=== PATIENT | male | born 1950 | race Caucasian/White ===

== ENCOUNTER 2020-06-23 07:52 | Outpatient (REF) | payer MEDICARE, OTHER, SELFPAY ==
[2020-06-23 11:27] LABS: Estimated Average Glucose 137 mg/dL; Hemoglobin A1c % 6.4 %
[2020-06-23 11:40] LABS: Alanine Aminotransferase 7 U/L (0-40); Albumin Level 3.5 g/dL (3.5-5.0); Alkaline Phosphatase 67 U/L (39-117); Anion Gap 9 (12-20); Aspartate Amino Transferase 14 U/L (5-37); Bilirubin Total 0.4 mg/dL (0.0-1.0); Blood Urea Nitrogen 18 mg/dL (9-16); Carbon Dioxide 26 mmol/L (22-29); Chloride 105 mmol/L (96-108); Cholesterol 101 mg/dL; Estimated Glomerular Filt Rate > 60; Glucose Fasting 124 mg/dL (60-99); HDL Cholesterol 26 mg/dL; LDL Cholesterol Calculated 63 mg/dl; Potassium 4.9 mmol/l (3.3-5.1); Sodium 135 mmol/L (135-145); Total Protein 7.8 g/dL (6.5-8.0); Triglycerides 61 mg/dL
[2020-06-23 11:50] LABS: Creatinine Urine 79.58 mg/dL; Microalbum/Creatinine Ratio Ur 327.9 ug/mg cr
== END 2020-06-23 07:53 | disposition home or self-care (01) ==
LOC: HO.MANLR 07:52
PROVIDERS: PCP Internal Medicine; Visit Provider Internal Medicine
DX: E11.65 Type 2 diabetes mellitus with hyperglycemia (principal); I10 Essential (primary) hypertension; E78.00 Pure hypercholesterolemia, unspecified
CPT/HCPCS: 80053; 80061; 82043; 83036

== ENCOUNTER 2020-09-03 07:57 | Outpatient (REF) | payer MEDICARE, OTHER, SELFPAY ==
[2020-09-03 11:45] LABS: Estimated Average Glucose 183 mg/dL
== END 2020-09-03 07:58 | disposition home or self-care (01) ==
LOC: HO.MANLR 07:57
PROVIDERS: PCP Internal Medicine; Visit Provider Internal Medicine
DX: E11.65 Type 2 diabetes mellitus with hyperglycemia (principal)
CPT/HCPCS: 36415; 83036

== ENCOUNTER 2021-01-14 13:37 | Outpatient (REF) | payer MEDICARE, OTHER, SELFPAY ==
[2021-01-14 18:51] LABS: Alanine Aminotransferase 8 U/L (0-40); Albumin Level 3.5 g/dL (3.5-5.0); Alkaline Phosphatase 74 U/L (39-117); Anion Gap 11 (12-20); Aspartate Amino Transferase 13 U/L (5-37); Bilirubin Total 0.6 mg/dL (0.0-1.0); Blood Urea Nitrogen 35 mg/dL (9-16); Calcium 8.8 mg/dL (8.4-10.2); Carbon Dioxide 25 mmol/L (22-29); Chloride 105 mmol/L (96-108); Cholesterol 109 mg/dL; Estimated Glomerular Filt Rate > 60; Glucose Random 145 mg/dL (60-115); HDL Cholesterol 25 mg/dL; LDL Cholesterol Calculated 68 mg/dl; Potassium 4.3 mmol/L (3.3-5.1); Sodium 137 mmol/L (135-145); Total Protein 7.8 g/dL (6.5-8.0); Triglycerides 84 mg/dL
[2021-01-14 18:55] LABS: Creatinine Urine 33.59 mg/dL; Microalbum/Creatinine Ratio Ur 184.5 ug/mg cr
[2021-01-15 06:51] LABS: Estimated Average Glucose 148 mg/dL; Hemoglobin A1c % 6.8 %
== END 2021-01-14 13:38 | disposition home or self-care (01) ==
LOC: HO.MANLDS 13:37
PROVIDERS: PCP Internal Medicine; Visit Provider Internal Medicine
DX: E11.65 Type 2 diabetes mellitus with hyperglycemia (principal); E78.00 Pure hypercholesterolemia, unspecified; I10 Essential (primary) hypertension
CPT/HCPCS: 36415; 80053; 80061; 82043; 83036

== ENCOUNTER 2021-04-29 10:40 | Outpatient (REF) | payer MEDICARE, OTHER, SELFPAY ==
[2021-04-29 14:35] LABS: Estimated Average Glucose 143 mg/dL; Hemoglobin A1c % 6.6 %
== END 2021-04-29 10:41 | disposition home or self-care (01) ==
LOC: HO.MANLDS 10:40
PROVIDERS: PCP Internal Medicine; Visit Provider Internal Medicine
DX: E11.65 Type 2 diabetes mellitus with hyperglycemia (principal); I10 Essential (primary) hypertension; E78.00 Pure hypercholesterolemia, unspecified
CPT/HCPCS: 36415; 83036

== ENCOUNTER 2021-08-05 08:09 | Outpatient (REF) | payer MEDICARE, OTHER, SELFPAY ==
[2021-08-05 11:38] LABS: Alanine Aminotransferase 12 U/L (0-40); Albumin Level 3.7 g/dL (3.5-5.0); Alkaline Phosphatase 54 U/L (39-117); Anion Gap 11 (12-20); Aspartate Amino Transferase 15 U/L (5-37); Bilirubin Total 0.4 mg/dL (0.0-1.0); Blood Urea Nitrogen 29 mg/dL (9-16); Calcium 9.4 mg/dL (8.4-10.2); Carbon Dioxide 28 mmol/L (22-29); Chloride 108 mmol/L (96-108); Cholesterol 152 mg/dL; Estimated Glomerular Filt Rate > 60; Glucose Fasting 115 mg/dL (60-99); HDL Cholesterol 28 mg/dL; LDL Cholesterol Calculated 104 mg/dl; Potassium 4.7 mmol/L (3.3-5.1); Sodium 142 mmol/L (135-145); Total Protein 7.3 g/dL (6.5-8.0); Triglycerides 100 mg/dL
[2021-08-05 11:44] LABS: Creatinine Urine 152.68 mg/dL
[2021-08-05 11:56] LABS: Microalbum/Creatinine Ratio Ur 422.4 ug/mg cr
[2021-08-05 13:58] LABS: Estimated Average Glucose 160 mg/dL; Hemoglobin A1c % 7.2 %
== END 2021-08-05 08:10 | disposition home or self-care (01) ==
LOC: HO.MANLDS 08:09
PROVIDERS: PCP Internal Medicine; Visit Provider Internal Medicine
DX: E11.65 Type 2 diabetes mellitus with hyperglycemia (principal); I10 Essential (primary) hypertension
CPT/HCPCS: 36415; 80053; 80061; 82043; 83036

== ENCOUNTER 2021-10-24 11:53 | Outpatient (REF) | payer MEDICARE, OTHER, SELFPAY ==
[2021-10-24 13:52] LABS: Estimated Average Glucose 143 mg/dL; Hemoglobin A1c % 6.6 %
[2021-10-24 14:29] LABS: Creatinine Urine 91.19 mg/dL
[2021-10-24 14:34] LABS: Alanine Aminotransferase 8 U/L (0-40); Albumin Level 3.8 g/dL (3.5-5.0); Alkaline Phosphatase 54 U/L (39-117); Anion Gap 10 (12-20); Aspartate Amino Transferase 16 U/L (5-37); Bilirubin Total 0.4 mg/dL (0.0-1.0); Blood Urea Nitrogen 24 mg/dL (9-16); Calcium 8.8 mg/dL (8.4-10.2); Carbon Dioxide 26 mmol/L (22-29); Chloride 110 mmol/L (96-108); Cholesterol 110 mg/dL; Estimated Glomerular Filt Rate > 60; Glucose Fasting 66 mg/dL (60-99); HDL Cholesterol 25 mg/dL; LDL Cholesterol Calculated 71 mg/dl; Potassium 4.5 mmol/L (3.3-5.1); Sodium 141 mmol/L (135-145); Total Protein 6.8 g/dL (6.5-8.0); Triglycerides 71 mg/dL
[2021-10-24 14:42] LABS: Microalbum/Creatinine Ratio Ur 791.7 ug/mg cr
== END 2021-10-24 11:54 | disposition home or self-care (01) ==
LOC: HO.MANLDS 11:53
PROVIDERS: PCP Internal Medicine; Visit Provider Internal Medicine
DX: E11.65 Type 2 diabetes mellitus with hyperglycemia (principal); I10 Essential (primary) hypertension
CPT/HCPCS: 36415; 80053; 80061; 82043; 83036

== ENCOUNTER 2022-02-13 07:49 | Outpatient (REF) | payer MEDICARE, OTHER, SELFPAY ==
[2022-02-13 11:17] LABS: Estimated Average Glucose 174 mg/dL; Hemoglobin A1c % 7.7 %
[2022-02-13 11:18] LABS: Alanine Aminotransferase 27 U/L (0-40); Albumin Level 3.7 g/dL (3.5-5.0); Alkaline Phosphatase 61 U/L (39-117); Anion Gap 11 (12-20); Aspartate Amino Transferase 11 U/L (5-37); Bilirubin Total 0.5 mg/dL (0.0-1.0); Blood Urea Nitrogen 38 mg/dL (9-16); Calcium 8.6 mg/dL (8.4-10.2); Carbon Dioxide 24 mmol/L (22-29); Chloride 108 mmol/L (96-108); Cholesterol 112 mg/dL; Estimated Glomerular Filt Rate 50; Glucose Random 82 mg/dL (60-115); HDL Cholesterol 25 mg/dL; LDL Cholesterol Calculated 73 mg/dl; Potassium 4.6 mmol/L (3.3-5.1); Sodium 138 mmol/L (135-145); Total Protein 6.5 g/dL (6.5-8.0); Triglycerides 70 mg/dL
[2022-02-13 11:55] LABS: Creatinine Urine 102.08 mg/dL
[2022-02-13 12:29] LABS: Microalbum/Creatinine Ratio Ur 673.9 ug/mg cr
== END 2022-02-13 07:50 | disposition home or self-care (01) ==
LOC: HO.MANLDS 07:49
PROVIDERS: Visit Provider Internal Medicine
DX: E11.65 Type 2 diabetes mellitus with hyperglycemia (principal); I10 Essential (primary) hypertension
CPT/HCPCS: 36415; 80053; 80061; 82043; 83036

== ENCOUNTER 2022-05-17 07:51 | Outpatient (REF) | payer MEDICARE, OTHER, SELFPAY ==
[2022-05-17 11:30] LABS: Estimated Average Glucose 194 mg/dL; Hemoglobin A1c % 8.4 %
== END 2022-05-17 07:52 | disposition home or self-care (01) ==
LOC: HO.MANLDS 07:51
PROVIDERS: Visit Provider Internal Medicine
DX: E11.65 Type 2 diabetes mellitus with hyperglycemia (principal); I10 Essential (primary) hypertension
CPT/HCPCS: 36415; 83036

== ENCOUNTER 2022-06-27 08:22 | Outpatient (REF) | payer MEDICARE, OTHER, SELFPAY ==
[2022-06-27 12:03] LABS: Estimated Average Glucose 160 mg/dL; Hemoglobin A1c % 7.2 %
[2022-06-27 12:24] LABS: Alanine Aminotransferase 14 U/L (0-40); Albumin Level 4.2 g/dL (3.5-5.0); Alkaline Phosphatase 58 U/L (39-117); Anion Gap 15 (12-20); Aspartate Amino Transferase 16 U/L (5-37); Bilirubin Total 0.4 mg/dL (0.0-1.0); Blood Urea Nitrogen 25 mg/dL (9-16); Calcium 9.2 mg/dL (8.4-10.2); Carbon Dioxide 23 mmol/L (22-29); Chloride 107 mmol/L (96-108); Cholesterol 135 mg/dL; Estimated Glomerular Filt Rate 49; Glucose Random 141 mg/dL (60-115); HDL Cholesterol 29 mg/dL; LDL Cholesterol Calculated 85 mg/dl; Potassium 5.1 mmol/L (3.3-5.1); Sodium 140 mmol/L (135-145); Total Protein 6.6 g/dL (6.5-8.0); Triglycerides 109 mg/dL
== END 2022-06-27 08:23 | disposition home or self-care (01) ==
LOC: HO.MANLDS 08:22
PROVIDERS: Visit Provider Internal Medicine
DX: E11.65 Type 2 diabetes mellitus with hyperglycemia (principal); I10 Essential (primary) hypertension
CPT/HCPCS: 36415; 80053; 80061; 83036

== ENCOUNTER 2022-10-30 07:42 | Outpatient (REF) | payer MEDICARE, OTHER, SELFPAY ==
[2022-10-30 11:15] LABS: Estimated Average Glucose 197 mg/dL; Hemoglobin A1c % 8.5 %
[2022-10-30 11:51] LABS: Alanine Aminotransferase 14 U/L (0-40); Albumin Level 3.7 g/dL (3.5-5.0); Alkaline Phosphatase 57 U/L (39-117); Anion Gap 10 (12-20); Aspartate Amino Transferase 15 U/L (5-37); Bilirubin Total 0.6 mg/dL (0.0-1.0); Blood Urea Nitrogen 25 mg/dL (9-16); Calcium 8.5 mg/dL (8.4-10.2); Carbon Dioxide 25 mmol/L (22-29); Chloride 113 mmol/L (96-108); Cholesterol 117 mg/dL; Estimated Glomerular Filt Rate > 60; Glucose Fasting 69 mg/dL (60-99); HDL Cholesterol 33 mg/dL; LDL Cholesterol Calculated 75 mg/dl; Sodium 144 mmol/L (135-145); Total Protein 5.9 g/dL (6.5-8.0); Triglycerides 46 mg/dL
== END 2022-10-30 07:43 | disposition home or self-care (01) ==
LOC: HO.MANLDS 07:42
PROVIDERS: Visit Provider Internal Medicine
DX: E11.9 Type 2 diabetes mellitus without complications (principal)
CPT/HCPCS: 36415; 80053; 80061; 83036

== ENCOUNTER 2023-02-28 08:59 | Outpatient (REF) | payer MEDICARE, OTHER, SELFPAY | END 2023-02-28 09:00 | disposition home or self-care (01) | LOC: HO.MANLDS 08:59 | PROVIDERS: Visit Provider Internal Medicine | DX: E11.9 Type 2 diabetes mellitus without complications (principal) | CPT/HCPCS: 36415; 80053; 80061; 82043; 83036 ==

== ENCOUNTER 2023-08-03 10:23 | Outpatient (REF) | payer MEDICARE, OTHER, SELFPAY ==
[2023-08-03 13:47] LABS: Estimated Average Glucose 166 mg/dL; Hemoglobin A1c % 7.4 % (<6.0)
[2023-08-03 13:55] LABS: Alanine Aminotransferase 12 U/L (0-40); Alkaline Phosphatase 53 U/L (39-117); Anion Gap 11 (12-20); Aspartate Amino Transferase 15 U/L (5-37); Bilirubin Total 0.5 mg/dL (0.0-1.0); Blood Urea Nitrogen 30 mg/dL (9-16); Carbon Dioxide 26 mmol/L (22-29); Chloride 109 mmol/L (96-108); Cholesterol 126 mg/dL (<200); Estimated Glomerular Filt Rate 59; Glucose Random 123 mg/dL (60-115); HDL Cholesterol 28 mg/dL (>40); LDL Cholesterol Calculated 73 mg/dL (<100); Potassium 3.8 mmol/L (3.3-5.1); Sodium 142 mmol/L (135-145); Total Protein 6.6 g/dL (6.5-8.0); Triglycerides 128 mg/dL (<150)
[2023-08-03 13:57] LABS: Creatinine Urine 92.24 mg/dL; Microalbum/Creatinine Ratio Ur 416.3 ug/mg cr (<30)
== END 2023-08-03 10:24 | disposition home or self-care (01) ==
LOC: HO.MANLDS 10:23
PROVIDERS: Visit Provider Internal Medicine
DX: E11.9 Type 2 diabetes mellitus without complications (principal)
CPT/HCPCS: 36415; 80053; 80061; 82043; 82570; 83036

== ENCOUNTER 2023-10-24 10:00 | Outpatient (REF) | payer MEDICARE, OTHER, SELFPAY ==
[2023-10-24 12:59] LABS: Estimated Average Glucose 148 mg/dL; Hemoglobin A1c % 6.8 % (<6.0)
[2023-10-24 13:06] LABS: Alanine Aminotransferase 10 U/L (0-40); Alkaline Phosphatase 68 U/L (39-117); Anion Gap 11 (12-20); Aspartate Amino Transferase 16 U/L (5-37); Bilirubin Total 0.5 mg/dL (0.0-1.0); Blood Urea Nitrogen 23 mg/dL (9-16); Calcium 9.4 mg/dL (8.4-10.2); Carbon Dioxide 28 mmol/L (22-29); Chloride 107 mmol/L (96-108); Estimated Glomerular Filt Rate > 60; Glucose Random 77 mg/dL (60-115); Potassium 4.6 mmol/L (3.3-5.1); Sodium 141 mmol/L (135-145); Total Protein 6.9 g/dL (6.5-8.0)
== END 2023-10-24 10:01 | disposition home or self-care (01) ==
LOC: HO.MANLDS 10:00
PROVIDERS: Visit Provider Internal Medicine
DX: E11.9 Type 2 diabetes mellitus without complications (principal)
CPT/HCPCS: 36415; 80053; 83036

== ENCOUNTER 2023-10-26 10:41 | Outpatient (REF) | payer MEDICARE, OTHER, SELFPAY ==
[2023-10-26 12:19] LABS: MANUAL DIFF FLAG NO
[2023-10-26 12:24] LABS: Basophils Percent Auto 0.5 % (0-2); Eosinophils Absolute Auto 0.2 X10*3/uL (0.0-0.4); Eosinophils Percent Auto 2.4 % (0-4); Hematocrit 36.4 % (42.0-52.0); Hemoglobin 11.8 g/dl (14.0-18.0); Imm Gran Abs Auto 0.04 X10*3/uL (0.00-0.03); Imm Gran Pct Auto 0.5 % (0.0-0.4); Lymphocytes Absolute Auto 0.9 X10*3/uL (1.2-4.9); Lymphocytes Percent Auto 12.4 % (20-40); Mean Corpuscular HGB Conc 32.4 g/dl (31.0-36.0); Mean Corpuscular Hemoglobin 33.1 pg (27.0-33.0); Mean Platelet Volume 10.4 fL (9.4-12.4); Monocytes Absolute Auto 0.6 X10*3/uL (0.1-1.2); Monocytes Percent Auto 7.9 % (2-11); Neutrophils Absolute Auto 5.7 x10*3/uL (2.0-8.3); Neutrophils Percent Auto 76.3 % (45-73); Platelet Count 206 X10*3/uL (160-400); Red Blood Count 3.57 X10*6/uL (4.60-5.80); Red Cell Distribution Width 12.3 % (11.0-16.0); White Blood Count 7.5 X10*3/uL (4.8-10.8)
[2023-10-26 12:33] LABS: Estimated Average Glucose 151 mg/dL; Hemoglobin A1c % 6.9 % (<6.0)
[2023-10-26 13:19] LABS: Prostate Specific Antigen < 0.10 ng/mL (<0.05-4.0)
== END 2023-10-26 10:42 | disposition home or self-care (01) ==
LOC: HO.MANLDS 10:41
PROVIDERS: Visit Provider Internal Medicine
DX: Z12.5 Encounter for screening for malignant neoplasm of prostate (principal); I10 Essential (primary) hypertension; E11.9 Type 2 diabetes mellitus without complications
CPT/HCPCS: 36415; 83036; 84153; 85025

== ENCOUNTER 2024-01-22 07:48 | Outpatient (REF) | payer MEDICARE, OTHER, SELFPAY ==
[2024-01-22 13:31] LABS: MANUAL DIFF FLAG NO
[2024-01-22 13:50] LABS: Basophils Percent Auto 0.9 % (0-2); Eosinophils Absolute Auto 0.2 X10*3/uL (0.0-0.4); Eosinophils Percent Auto 4.9 % (0-4); Hematocrit 35.8 % (42.0-52.0); Hemoglobin 11.5 g/dl (14.0-18.0); Imm Gran Abs Auto 0.02 X10*3/uL (0.00-0.03); Imm Gran Pct Auto 0.4 % (0.0-0.4); Lymphocytes Absolute Auto 0.8 X10*3/uL (1.2-4.9); Lymphocytes Percent Auto 17.1 % (20-40); Mean Corpuscular HGB Conc 32.1 g/dl (31.0-36.0); Mean Corpuscular Hemoglobin 32.5 pg (27.0-33.0); Mean Corpuscular Volume 101.1 fL (80.0-98.0); Mean Platelet Volume 10.8 fL (9.4-12.4); Monocytes Absolute Auto 0.5 X10*3/uL (0.1-1.2); Monocytes Percent Auto 9.9 % (2-11); Neutrophils Absolute Auto 3.1 x10*3/uL (2.0-8.3); Neutrophils Percent Auto 66.8 % (45-73); Platelet Count 213 X10*3/uL (160-400); Red Blood Count 3.54 X10*6/uL (4.60-5.80); Red Cell Distribution Width 12.5 % (11.0-16.0); White Blood Count 4.7 X10*3/uL (4.8-10.8)
[2024-01-22 13:56] LABS: Estimated Average Glucose 154 mg/dL
[2024-01-22 14:23] LABS: Alanine Aminotransferase 12 U/L (0-40); Alkaline Phosphatase 105 U/L (39-117); Anion Gap 11 (12-20); Aspartate Amino Transferase 17 U/L (5-37); Bilirubin Total 0.5 mg/dL (0.0-1.0); Blood Urea Nitrogen 21 mg/dL (9-16); Carbon Dioxide 25 mmol/L (22-29); Chloride 111 mmol/L (96-108); Cholesterol 101 mg/dL (<200); Estimated Glomerular Filt Rate > 60; Glucose Random 86 mg/dL (60-115); HDL Cholesterol 31 mg/dL (>40); LDL Cholesterol Calculated 55 mg/dL (<100); Potassium 4.9 mmol/L (3.3-5.1); Sodium 142 mmol/L (135-145); Total Protein 6.7 g/dL (6.5-8.0); Triglycerides 75 mg/dL (<150)
[2024-01-22 14:37] LABS: Prostate Specific Antigen < 0.10 ng/mL (<0.05-4.0)
== END 2024-01-22 07:49 | disposition home or self-care (01) ==
LOC: HO.MANLDS 07:48
PROVIDERS: Visit Provider Internal Medicine
DX: Z12.5 Encounter for screening for malignant neoplasm of prostate (principal); I10 Essential (primary) hypertension; E11.9 Type 2 diabetes mellitus without complications
CPT/HCPCS: 36415; 80053; 80061; 83036; 84153; 85025

== ENCOUNTER 2024-05-28 08:38 | Outpatient (REF) | payer MEDICARE, OTHER, SELFPAY ==
[2024-05-28 14:10] LABS: Alanine Aminotransferase 19 U/L (0-40); Albumin Level 4.2 g/dL (3.5-5.0); Alkaline Phosphatase 64 U/L (39-117); Anion Gap 13 (12-20); Aspartate Amino Transferase 22 U/L (5-37); Bilirubin Total 0.5 mg/dL (0.0-1.0); Blood Urea Nitrogen 30 mg/dL (9-16); Calcium 9.1 mg/dL (8.4-10.2); Carbon Dioxide 24 mmol/L (22-29); Chloride 111 mmol/L (96-108); Cholesterol 112 mg/dL (<200); Estimated Glomerular Filt Rate 58; Glucose Random 101 mg/dL (60-115); HDL Cholesterol 28 mg/dL (>40); LDL Cholesterol Calculated 71 mg/dL (<100); Potassium 4.6 mmol/L (3.3-5.1); Sodium 143 mmol/L (135-145); Total Protein 6.9 g/dL (6.5-8.0); Triglycerides 69 mg/dL (<150)
[2024-05-28 14:27] LABS: Estimated Average Glucose 137 mg/dL; Hemoglobin A1C 134.7013 umol/L; Hemoglobin A1c % 6.4 % (<6.0); Total Hemoglobin (HGBA1C) 2879.5643 umol/L
== END 2024-05-28 08:39 | disposition home or self-care (01) ==
LOC: HO.MANLDS 08:38
PROVIDERS: Visit Provider Internal Medicine
DX: E11.9 Type 2 diabetes mellitus without complications (principal)
CPT/HCPCS: 36415; 80053; 80061; 83036

== ENCOUNTER 2024-10-28 13:22 | Outpatient (REF) | payer MEDICARE, OTHER, SELFPAY ==
--- OUTSIDE RECORDS SUMMARY | 2024-10-29 16:00 | XMS_ITS | Continuity of Care Document ---
Author Organization [place] - [facility], [facility] Address [address] [place] [address] Assessment No assessment recorded. Plan of Treatment Reminders Order Date Submit Date Provider Last Modified By Organization Details Last Modified Time Details Appointments FOLLOW UP 15 2024 02:15P M DR GAN Not available Not available Not available Lab culture, wound 2024 025 [facility], [address] [place] [address], [place], [address], 10/28/2024 14:30:30 Referral wound care referral 2024 025 hrubner [facility] New Referrals Only, [address], [place], [address], 10/29/2024 08:20:50 Procedures None recorded. Surgeries None recorded. Imaging None recorded. Medication Orders torsemide 10 mg tablet 2024 025 [id number], [address] [place], [address], 10/28/2024 14:24:17 Patient TargetsNo targets recorded. Patient InstructionsNo instructions recorded. Reason for Referral Referring Physician: Lisa Lane, Internal Medicine, Encounter Date: 10/28/2024 Results Created Date Observation Date Name Description Value Unit Range Abnormal Flag Note LastModifiedBy Organization Detail LastModifiedTime 10/02/1910/01/2024 XR, forea rm, 2 view No observ ation record ed. [facility] [address], [place], [address], 10/03/2024 09:51:07 10/02/19 25 10/01/2024 XR, wrist , 3 or more view No observ ation record ed. [address], [address], 10/03/2024 09:51:08 10/02/19 25 10/01/2024 XR, lumbo sacra l spine , 2 or 3 view No observ ation record ed. [facility] [address], [place], [address], 10/03/2024 09:51:08 10/02/19 25 10/01/2024 XR, forea rm, 2 view No observ ation record ed. [address], [address], 10/03/2024 09:51:08 10/02/1910/01/2024 XR, tibia + fibul a, 2 view No observ ation record ed. [facility] [address], [place], [address], 10/03/2024 09:51:09 Result Notes None recorded. 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 00641632813 220682 Active 2018 Not Available [facility] 20:36:44 Type 2 diabetes mellitus 28471972 Active 2017 Not Available [facility] 20:36:44 Retinal detachme nt 27243214 Active 2017 Not Available [facility] 20:36:44 Hyperlip idemia 71693416 Active 2017 Not Available [facility] 20:36:44 [facility] hyperten karina 35365874 Active 2017 Not Available [facility] 20:36:44 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 10782178 Active 2017 Not Available [facility] 20:36:44 Herpes simplex 03688906 Active 2017 Not Available [facility] 20:36:44 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 Not Available [facility] 20:36:44 Neoplasm of muscle of buttock 599357713 Active 2017 Not Available [facility] 20:36:44 Gastroes ophageal reflux disease 098168693 Active 2020 Not Available [facility] 20:36:44 Rash of groin 11502988837 296949 Active 2023 DORYS SWENSON [address] [place], [address], [facility] 4 09:57:20 Candidal intertri go 963358424 Active 2023 DORYS SWENSON [address] [place], [address], [facility] 4 09:58:21 Pain of left wrist 47859529793 9102 Active 2024 DORYS SWENSON [address] [place], [address], [facility] 5 15:32:36 Pain in lumbar spine 612036136 Active 2024 DORYS SWENSON [address] [place], [address], [facility] 5 15:32:43 Weakness of right lower limb Active 2024 DORYS SWENSON [address] [place], [address], [facility] 5 15:32:56 Compress ion fracture of L2 44511294722 182173 Active 2024 DORYS SWENSON [address] [place], [address], [facility] 5 09:52:02 Pressure injury 2479616642 Active 2024 DORYS SWENSON [address] [place], [address], [facility] 5 14:14:12 Edema of lower extremit y 246462340 Active 2024 DORYS SWENSON [address] [place], [address], [facility] 5 14:15:21 Problem Notes None recorded. Procedures Surgical History Date Name Laterality Status Provider Name and Address Organization Details Recorded Time 10/29/19 25 WOUND CARE completed DORYS SWENSON [address] [place] [address], [address], [facility] 10/28/2024 14:22:44 09/10/19 19 colonoscopy completed Angi Dyson [facility] 09/11/2018 09:18:58 Imaging Results None recorded. Procedure Notes None recorded. Medical Equipment None Reported. Allergies Allergen ID Allergen Name Allergen Category Reaction Reaction Severity Criticality Documentation Date Start Date Code Code System Note Provider Name and Address Organization Details Recorded Time 335 Cialis medicatio n rash Not available Not available 10/30/2017 53577 3 RxNorm May wilcox [facility] 8 16:30:10 336 Substance with sulfonami de structure and antibacte rial mechanism of action (substanc e) medicatio n Not available Not available Not available 10/30/2017 01098 8003 SNOMED May wilcox [facility] 8 16:30:16 337 penicilli n V Not available Not available Not available Not available 10/30/2017 7984 RxNorm May wilcox [facility] 8 16:30:21 338 metformin medicatio n Not available Not available Not available 10/30/2017 6809 RxNorm May wilcox [facility] 8 16:30:26 339 lisinopri l medicatio n Not available Not available Not available 10/30/2017 64441 RxNorm Marlen Arguello [facility] 0 09:30:41 4439 morphine medicatio n vomiting Not available Not available 12/15/2020 7052 RxNorm Marlen Arguello [facility], [facility] 1 15:03:22 5164 doxycycli ne Not available rash moderate Not available 08/03/20212020 3640 RxNorm Keron Gan, DO [address] [place], [address], [facility] 1 10:47:48 Medications Name Sig Start Date Stop Date Status Note LastModified by Organization Details LastModified Time prednisone 10 mg tablet Take 1 tablet every day by oral route for 8 days. 09/14 completed Not Available Not Available Not Available doxycycline hyclate 100 mg capsule TAKE 1 CAPSULE BY MOUTH TWICE A DAY 10/25 completed Not Available Not Available Not Available ofloxacin 0.3 % eye drops 08/14 completed Not Available Not Available Not Available fluconazole 150 mg tablet TAKE 1 TABLET BY MOUTH EVERY DAY FOR 10 DAYS 10/25 completed Not Available Not Available Not Available valacyclovi r 1 gram tablet 10/28 completed Not Available Not Available Not Available torsemide 10 mg tablet Take 1 tablet every day by oral route in the morning for 14 days. 2024 active Not Available Not Available Not Avai lable prochlorper azine maleate 10 mg tablet 11/26 completed Not Available Not Available Not Available ciprofloxac in 500 mg tablet 11/26 completed Not Available Not Available Not Available tramadol 50 mg tablet Take 1 tablet every 6 hours by oral route as needed for 30 days. 08/03 completed Not Available Not Available Not Available simvastatin 40 mg tablet TAKE 1 TABLET BY MOUTH EVERY DAY active Not Available Not Available No t Available ondansetron 8 mg disintegrat ing tablet 11/26 completed Not Available Not Available Not Available meloxicam 7.5 mg tablet TAKE 1 TABLET BY MOUTH EVERY DAY WITH A MEAL FOR 30 DAYS active Not Available Not Available No t Available ofloxacin 0.3 % ear drops INSTILL 10 DROPS (1.5 MG) INTO AFFECTED EAR(S) BY OTIC ROUTE 2 TIMES PER DAY 01/25 completed Not Available Not Available Not Available cephalexin 500 mg capsule TAKE 1 CAPSULE BY MOUTH FOUR TIMES A DAY FOR 7 DAYS active Not Available Not Available No t Available glimepiride 4 mg tablet TAKE 1 TABLET BY MOUTH EVERY DAY 05/19 completed Not Available Not Available Not Available prednisone 50 mg tablet 11/26 completed Not Available Not Available Not Available diclofenac sodium 75 mg tablet,fahad yed release TAKE 1 TABLET BY MOUTH TWICE DAILY FOR 14 DAYS 08/03 completed Not Available Not Available Not Available bisacodyl 5 mg tablet,fahad yed release TAKE 4 TABLETS BY MOUTH ONCE DIRECTED active Not Available Not Available No t Available lisinopril 5 mg tablet TAKE 1 TABLET BY MOUTH EVERY DAY active Not Available Not Available No t Available furosemide 20 mg tablet TAKE 1 TABLET BY MOUTH EVERY DAY 2020 active Not Available Not Available Not Avai lable lorazepam 1 mg tablet 11/26 completed Not Available Not Available Not Available morphine 15 mg immediate release tablet TAKE 1 TABLET BY MOUTH NIGHTLY AT BEDTIME NEEDED FOR PAIN 12/31 completed Not Available Not Available Not Available ondansetron 4 mg disintegrat ing tablet Place 2 tablets twice a day by transling ual route as needed for 7 days. 01/19 completed Not Available Not Available Not Available doxycycline hyclate 100 mg tablet TAKE 1 TABLET BY MOUTH TWICE DAILY 05/19 completed Not Available Not Available Not Available atovaquone 750 mg/5 mL oral suspension 11/26 completed Not Available Not Available Not Available neomycin-po lymyxin-hyd rocort 3.5 mg-10,000 unit/mL-1 % ear drops,susp 01/25 completed Not Available Not Available Not Available Neulasta 6 mg/0.6 mL subcutaneou s syringe 11/26 completed Not Available Not Available Not Available Gas Relief Extra Strength 125 mg chewable tablet CHEW 3 TABLETS BY MOUTH DIRECTED active Not Available Not Available No t Available BD Ultra-Fine Mini Pen Needle 31 gauge x 3/16 USE TO INJECT INSULIN TWICE DAILY 01/19 completed Not Available Not Available Not Available Boostrix Tdap 2.5 Lf unit-8 mcg-5 Lf/0.5 mL intramuscul ar syringe 10/28 completed Not Available Not Available Not Available Vitamin C active Not Available Not Shweta ilable Not Available vitamin E active Not Available Not Shweta ilable Not Available Levemir FlexPen 100 unit/mL (3 mL) solution subcutaneou s insulin pen INJECT 24 UNITS SUBCUTANE OUSLY TWICE A DAY 10/25 completed Not Available Not Available Not Available BD Ultra-Fine Short Pen Needle 31 gauge x 5/16 USE TO TEST TWICE A DAY active Not Available Not Available No t Available GaviLyte-G 236 gram-22.74 gram-6.74 gram-5.86 gram oral solution TAKE DIRECTED 10/25 completed Not Available Not Available Not Available Prevnar 13 (PF) 0.5 mL intramuscul ar syringe ADM 0.5ML IM UTD 09/14 completed Not Available Not Available Not Available OneTouch Verio test strips USE TO TEST BLOOD SUGARS TWICE DAILY DIRECTED active Not Available Not Available No t Available Jardiance 25 mg tablet TAKE 1 TABLET BY MOUTH EVERY DAY 01/29 completed Not Available Not Available Not Available Tresiba FlexTouch U-100 insulin 100 unit/mL (3 mL) subcutaneou s pen INJECT 24 UNITS TWICE A DAY BY SUBCUTANE OUS ROUTE FOR 30 DAYS. active Not Available Not Available No t Available Basaglar KwikPen U-100 Insulin 100 unit/mL (3 mL) subcutaneou s INJECT 24 UNITS TWICE A DAY active Not Available Not Available No t Available Shingrix (PF) 50 mcg/0.5 mL intramuscul ar suspension, kit 05/26 completed Not Available Not Available Not Available Vitals Date Recorded Body height Body mass index (BMI) Body weight Provider Name and Address Organization Details Last Updated DateTime 10/28/2024 177.8 cm 27.4 kg/m2 50054.14 g [facility] 10/28/2024 14:06:45 Social History Question Answer Notes LastModified by Organizat ion Details LastModified Time Tobacco Smoking Status Former Smoker Not Available [facility] 06/29/2020 03:36:23 What Was The Date Of Your Most Recent Tobacco Screening? 10/28/2024 [email or web address] Information not available 10/28/2024 Do You Or Have You Ever Used Any Other Forms Of Tobacco Or Nicotine? No Information not available 06/28/2022 Sex: Unknown Functional Status None recorded. Mental Status None recorded. Family History Nothing Reported. Medical History No medical history recorded. Immunizations Vaccine Type Date Status Note Provider Nam e and Address Organization Details Recorded Time [facility]ap 8 [facility] 14:00:33 Influenza, split virus, quadrivalent, preservative 1 completed Keron Gan DO [address] [place] [address], [address] 06/16/2021 16:53:05 COVID-19, mRNA, LNP-S, PF, 30 mcg/0.3 mL dose 1 completed May wilcox [facility] 06/24/2021 08:21:55 Influenza, split virus, quadrivalent, preservative 0 completed Keron Gan DO [address] [place] [address], [address] 06/10/2020 20:09:05 Pneumococcal conjugate PCV 13 0 completed Keron Gan DO [address] [place] [address], [address] 07/20/2020 13:35:49 zoster recombinant 9 terrence wilcox [facility] 10/18/2020 11:57:10 COVID-19, mRNA, LNP-S, PF, 30 mcg/0.3 mL dose 1 terrence wilcox [facility] 01/18/2021 09:08:47 COVID-19, mRNA, LNP-S, PF, 30 mcg/0.3 mL dose 1 terrence wilcox [facility] 01/18/2021 09:08:52 Past Encounters Encounter ID Performer Location Encounter Start Date Encounter Closed Date Diagnosis/Indication Diagnosis SNOMED-CT Code Diagnosis ICD10 Code Diagnosis Note [id number] DORYS SWENSON [facility] [address] [address] 09/30/2024 13:29:28 09/30/2024 15:56:08 Pain of left wrist 3352622963 29764 M25.532 Pain in lumbar spine 267 661340 M54.51 Weakness o f right lower limb 9837820208 96891 M62.81 [id number] DORYS SWENSON [facility] [address],[place] [address] 10/28/2024 13:52:25 10/28/2024 16:15:40 Pressure injury 8364066869 L89.90 will set up with at home wound care due to fracture, he can't drive himself Edema of l ower extremity 353808109 R60.0 small dose, keep elevated Health Concerns Section Related Observation LastModified by Organization Detai ls LastModified Time None Recorded Concern Status LastModified by Organization Details LastModified Time None Recorded Payers Encounter Date Sequence Insurance Name Policy Number Policy Cr Covered Member ID Cr Member ID Guarantor Name 10/28/2024 1 [place] [employer] Jimmy Lehman [id number] Osiel Lehman 10/28/2024 2 [facility] (MEDICARE SUPPLEMENT) Osiel Lehman [id number] Osiel Lehman Notes Date Note Type Note Provider Name a nd Address Organization Details Recorded Time 5 text/html c/o pressure ulcer the patient has a pressure ulcer posterior right armthe patient reports that it started when the ortho doc took off his dressing found the ulcer, has a brace on him that is causing pressure against the wound which is probably why this started started him on keflex which is finewill dress his wound, took culture as well to send out having swelling of his emani feetrecommended small dose of diuretic DORYS SWENSON [address] [place], [address], [facility] 10/28/2024 14:38:59
--- OUTSIDE RECORDS SUMMARY | 2024-10-29 16:00 | XMS_ITS | Data Portability ---
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 MODERATE MUST MEET 2 OUT OF 3 ELEMENTS: PROBLEMS, DATA OR RISK ELEMENT 1: PROBLEMS ADDRESSED 1 OR MORE CHRONIC ILLNESS WITH EXACERBATION OR 2 OR MORE STABLE CHRONIC ILLNESSES OR 1 UNDIAGNOSED NEW PROBLEM OR 1 ACUTE ILLNESS W/SYMPTOMS OR 1 ACUTE COMPLICATED INJURY ELEMENT 2: DATA MUST MEET 1 OF 3 CATEGORIES CATEGORY 1: REVIEW OF PRIOR EXTERNAL NOTES, REVIEW OF RESULTS, ORDERING OF EACH TEST, ASSESSMENT REQUIRING INDEPENDENT HISTORIAN OR CATEGORY 2: INDEPENDENT INTERPRETATION OF TESTS BY ANOTHER PHYSICIAN OR SPECIALIST OR CATEGORY 3: DISCUSSION OF MGT OR TEST INTERPRETATION W/EXTERNAL PHYSICIAN OR SPECIALIST ELEMENT 3: RISK RISK OF COMPLICATIONS AND/OR MORBIDITY OR MORTALITY OF PATIENT MANAGEMENT PROVIDER MUST THOROUGHLY DOCUMENT EACH ELEMENT THAT IS COVERED Not available 10/26/2023 10:29:36 06/02/2024 06/02/2024 [id number] [place] [id number]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) [facility]DM MODERATE MUST MEET 2 OUT OF 3 ELEMENTS: PROBLEMS, DATA OR RISK ELEMENT 1: PROBLEMS ADDRESSED 1 OR MORE CHRONIC ILLNESS WITH EXACERBATION OR 2 OR MORE STABLE CHRONIC ILLNESSES OR 1 UNDIAGNOSED NEW PROBLEM OR 1 ACUTE ILLNESS W/SYMPTOMS OR 1 ACUTE COMPLICATED INJURY ELEMENT 2: DATA MUST MEET 1 OF 3 CATEGORIES CATEGORY 1: REVIEW OF PRIOR EXTERNAL NOTES, REVIEW OF RESULTS, ORDERING OF EACH TEST, ASSESSMENT REQUIRING INDEPENDENT HISTORIAN OR CATEGORY 2: INDEPENDENT INTERPRETATION OF TESTS BY ANOTHER PHYSICIAN OR SPECIALIST OR CATEGORY 3: DISCUSSION OF MGT OR TEST INTERPRETATION W/EXTERNAL PHYSICIAN OR SPECIALIST ELEMENT 3: RISK RISK OF COMPLICATIONS AND/OR MORBIDITY OR MORTALITY OF PATIENT MANAGEMENT PROVIDER MUST THOROUGHLY DOCUMENT EACH ELEMENT THAT IS COVERED Not available 06/02/2024 11:42:34 09/30/2024 09/30/2024 Patient agreed and verbally consents to this audio and video Telehealth appt via a secure platform [email or web address] Not available 09/30/2024 15:33:02 Plan of Treatment Reminders Order Date Submit Date Provider Last Modified By Organization Details Last Modified Time Details Appointments FOLLOW UP 15 2024 02:15P M DR GAN Not available Not available Not available Lab culture, wound 2024 025 [facility], [address] [place] [address], [address], 10/28/2024 14:30:30 HbA1c (hemoglob in A1c), blood 2023 024 [facility], [address] [place] [address], [address], 01/30/2024 11:11:25 HbA1c (hemoglob in A1c), blood 2023 024 [facility], [address] [place] [address], [address], 10/29/2023 11:13:24 HbA1c (hemoglob in A1c), blood 2023 024 [facility], [address] [place] [address], [address], 10/29/2023 11:13:24 CBC 2023 024 [facility], [address] [place] [address], [address], 10/29/2023 11:13:23 PSA, serum or plasma 2023 024 [facility], [address] [place] [address], [address], 10/26/2023 10:31:58 Referral wound care referral 2024 025 [facility] - New Referrals Only, [address] [place], [address], 10/29/2024 08:20:50 Procedures None recorded. Surgeries None recorded. Imaging XR, lumbosacr al spine, 2 or 3 view 2024 025 [facility] Central Scheduling (Not Breast), [address] [place] [address], [address], 10/02/2024 10:16:00 XR, femur, 2 or more view 2024 025 [facility] Central Scheduling (Not Breast), [address] [place] [address], [address], 10/14/2024 09:00:00 XR, tibia + fibula, 2 view 2024 025 [facility] Central Scheduling (Not Breast), [address] [place] [address], [address], 10/02/2024 10:18:39 XR, wrist, 3 or more view 2024 025 [facility] Central Scheduling (Not Breast), [address] [place] [address], [address], 10/02/2024 11:29:00 XR, forearm, 2 view 2024 025 [facility] Central Scheduling (Not Breast), [address] [place] [address], [address], 10/02/2024 10:13:59 Medication Orders torsemide 10 mg tablet 2024 025 [facility], [address] [place], [address], 10/28/2024 14:24:17 Patient TargetsNo targets recorded. Patient InstructionsNo instructions recorded. Reason for Referral Referring Physician: Lisa Lane, Internal Medicine, Encounter Date: 10/28/2024 Results Created Date Observation Date Name Description Value Unit Range Abnormal Flag Note LastModifiedBy Organization Detail LastModifiedTime 10/02/19 25 10/01/2024 XR, forea rm, 2 view No observ ation record ed. [address], [address], 10/03/2024 09:51:07 10/02/19 25 10/01/2024 XR, wrist , 3 or more view No observ ation record ed. [address], [address], 10/03/2024 09:51:08 10/02/19 25 10/01/2024 XR, lumbo sacra l spine , 2 or 3 view No observ ation record ed. [facility] [address] [facility] [address], [place], [address], 10/03/2024 09:51:08 10/02/19 25 10/01/2024 XR, forea rm, 2 view No observ ation record ed. [address], [address], 10/03/2024 09:51:08 10/02/1910/01/2024 XR, tibia + fibul a, 2 view No observ ation record ed. [facility] [address] [facility] [address], [place], [address], 10/03/2024 09:51:09 Result Notes None recorded. Problems Name Problem SNOMED Code Status Onset Date Resolution Date Notes Provider Name and Address Organization Details Recorded Time Diffuse non-Hodg kin's lymphoma 890768836 Active 2017 B cell Not Available [facility] 20:36:44 Herpes zoster 6736912 Active 2017 Not Available [facility] 20:36:44 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 01253280751 368189 Active 2018 Not Available [facility] 20:36:44 Type 2 diabetes mellitus 48527126 Active 2017 Not Available [facility] 20:36:44 Retinal detachme nt 21370250 Active 2017 Not Available [facility] 20:36:44 Hyperlip idemia 83371955 Active 2017 Not Available [facility] 20:36:44 [facility] hyperten karina 83186453 Active 2017 Not Available [facility] 20:36:44 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 30603324 Active 2017 Not Available [facility] 20:36:44 Herpes simplex 96347126 Active 2017 Not Available [facility] 20:36:44 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 Not Available [facility] 20:36:44 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 Not Available [facility] 20:36:44 Gastroes ophageal reflux disease 572172835 Active 2020 Not Available [facility] 20:36:44 Rash of groin 82114773982 514961 Active 2023 DORYS SWENSON [address] [place] [address], [address], [facility] 4 09:57:20 Candidal intertri go 537512100 Active 2023 DORYS SWENSON [address] [place], [address], [facility] 4 09:58:21 Pain of left wrist 56369545351 9102 Active 2024 DORYS SWENSON [address] [place], [address], [facility] 5 15:32:36 Pain in lumbar spine 419270153 Active 2024 DORYS SWENSON [address] [place], [address], [facility] 15:32:43 Weakness of right lower limb Active 2024 DORYS SWENSON [address] [place], [address], [facility] 15:32:56 Compress ion fracture of L2 56062155600 208667 Active 2024 DORYS SWENSON [address] [place], [address], [facility] 5 09:52:02 Pressure injury 2483938573 Active 2024 DORYS SWENSON [address] [place], [address], [facility] 14:14:12 Edema of lower extremit y 514838711 Active 2024 DORYS SWENSON [address] [place], [address], [facility] 14:15:21 Problem Notes None recorded. Procedures Surgical History Date Name Laterality Status Provider Name and Address Organization Details Recorded Time 10/29/19 25 WOUND CARE completed DORYS SWENSON [address] [place], [address], [facility] 10/28/2024 14:22:44 09/10/19 19 colonoscopy completed Angi Dyson [facility] 09/11/2018 09:18:58 Imaging Results Imaging Date Name Status LastModified by Organiz ation Details LastModified Time 10/01/2024 XR, forearm, 2 view completed [address], [address], 10/03/2024 09:51:07 10/01/2024 XR, wrist, 3 or more view completed [address], [address], 10/03/2024 09:51:08 10/01/2024 XR, lumbosacral spine, 2 or 3 view completed [facility] [address] [facility] [address], [place], [address], 10/03/2024 09:51:08 10/01/2024 XR, forearm, 2 view completed [facility] [address] [facility], [place], [address], 10/03/2024 09:51:08 10/01/2024 XR, tibia + fibula, 2 view completed [facility] [address] [facility] [address], [place], [address], 10/03/2024 09:51:09 Procedure Notes None recorded. Medical Equipment None Reported. Allergies Allergen ID Allergen Name Allergen Category Reaction Reaction Severity Criticality Documentation Date Start Date Code Code System Note Provider Name and Address Organization Details Recorded Time 335 Cialis medicatio n rash Not available Not available 10/30/2017 32445 3 RxNorm May Nair [facility] 8 16:30:10 336 Substance with sulfonami de structure and antibacte rial mechanism of action (substanc e) medicatio n Not available Not available Not available 10/30/2017 16543 8003 SNOMED May Nair [facility] 8 16:30:16 337 penicilli n V Not available Not available Not available Not available 10/30/2017 7984 RxNorm May Nair [facility] 8 16:30:21 338 metformin medicatio n Not available Not available Not available 10/30/2017 6809 RxNorm May Nair [facility] 8 16:30:26 339 lisinopri l medicatio n Not available Not available Not available 10/30/2017 99946 RxNorm Marlen Arguello [facility] 0 09:30:41 4439 morphine medicatio n vomiting Not available Not available 12/15/2020 7052 RxNorm Marlen Arguello [facility] 1 15:03:22 5164 doxycycli ne Not available rash moderate Not available 08/03/20212020 3640 RxNorm Keron Gan, DO [address] [place], [address], [facility] 10:47:48 Medications Name Sig Start Date Stop [...] height Body mass index (BMI) Body weight Heart rate Oxygen saturation Oxygen saturation in Arterial blood by Pulse oximetry Systolic blood pressure Diastolic blood pressure Provider Name and Address Organization Details Last Updated DateTime 4 180.34 cm 26 kg/m2 90196.3 4 g 48 /min 99 % 99 % 142 mm[Hg] 58 mm[Hg] Keron Gan, DO [address] [place], [address] [place] [address] Internal Medicine 4 10:13:42 Date Recorded Body height Body mass index (BMI) Body weight Heart rate Respiratory rate Oxygen saturation Oxygen saturation in Arterial blood by Pulse oximetry Systolic blood pressure Diastolic blood pressure Provider Name and Address Organization Details Last Updated DateTime 4 177.8 cm 27.5 kg/m2 74405.9 4 g 76 /min 16 /min 98 % 98 % 138 mm[Hg] 76 mm[Hg] Hunter Alvarez [facility] 4 10:47:15 Date Recorded Body height Body mass index (BMI) Body weight Heart rate Systolic blood pressure Diastolic blood pressure Provider Name and Address Organization Details Last Updated DateTime 4 177.8 cm 27.4 kg/m2 68479.1 4 g 54 /min 168 mm[Hg] 70 mm[Hg] Mable Grier [facility] Internal [facility] 4 11:25:12 Date Recorded Body height Body mass index (BMI) Body weight Provider Name and Address Organization Details Last Updated DateTime 10/28/2024 177.8 cm 27.4 kg/m2 76328.14 g Hunter Alvarez [facility] Internal Medicine 10/28/2024 14:06:45 Social History Question Answer Notes LastModified by Organizat ion Details LastModified Time Tobacco Smoking Status Former Smoker Not Available [facility] 06/29/2020 03:36:23 What Was The Date Of [...] Details Recorded Time Tdap 8 [facility] 02/05/2019 14:00:33 Influenza, split virus, quadrivalent, preservative 1 completed Keron Gan DO [address] [place] [address], [address], [facility] 06/16/2021 16:53:05 COVID-19, mRNA, LNP-S, PF, 30 mcg/0.3 mL dose 1 [facility] 06/24/2021 08:21:55 Influenza, split virus, quadrivalent, preservative 0 completed Keron Gan DO [address] [place] [address], [address], [facility] 06/10/2020 20:09:05 Pneumococcal conjugate PCV 13 0 completed Keron Gan DO [address] [place], [address], [facility] 07/20/2020 13:35:49 zoster recombinant 9 completed May wilcox [facility] 10/18/2020 11:57:10 COVID-19, mRNA, LNP-S, PF, 30 mcg/0.3 mL dose 1 completed May wilcox [facility] 01/18/2021 09:08:47 COVID-19, mRNA, LNP-S, PF, 30 mcg/0.3 mL dose 1 terrence wilcox [facility] 01/18/2021 09:08:52 Past Encounters Encounter ID Performer Location Encounter Start Date Encounter Closed Date Diagnosis/Indication Diagnosis SNOMED-CT Code Diagnosis ICD10 Code Diagnosis Note November CECILLE Martinez [facility] [address] [facility], [place] [address] 11/26/2017 14:31:25 11/26/2017 15:22:32 Essential hypertension 06000975 I10 stable on current regimen Acute infe ctive otitis externa 458183524 H60.391 [id number] Keron Gan DO [facility] [address] [facility],[place] [address] 01/25/2018 10:23:10 01/25/2018 11:29:15 Type 2 diabetes mellitus 98100653 E11.65 discussion at length about need for getting better with diet has started eating a lt of chopped salads and is doing much better with glucose readings will chk a1c in 3 months Hyperlipidemia 78721016 E78.00 will get this next visit Essential hypertension 03212576 I10 stable and no major issues with meds [id number] Keron Gan DO [facility] [address] [facility] [address] 05/06/2018 11:09:34 05/06/2018 12:09:19 Type 2 diabetes mellitus 65128348 E11.65 a1c 7.2 discussion at length about better with diet is much better with glucose readings will chk a1c in 3 months Essential hypertension 35170891 I10 stable and no major issues with meds Hyperlipidemia 80228391 E78.00 will get this next visit Diffuse no n-Hodgkin's lymphoma 130612233 C83.90 having ongoing followup for the lymphoma with q 6 hr lymphoma no major issues [id number] [facility] Internal [facility] [address] [facility] [address] [place] [address] 08/14/2018 11:45:11 08/14/2018 15:00:14 Type 2 diabetes mellitus 94984270 E11.65 a1c 8.5 discussion at length about better with diet is much better with glucose readings will chk a1c in 3 months but i feel he needs to increase dose of the insulin will recc he increase the Levemir to 28 Hyperlipidemia 98297715 E78.00 will get this next visit Essential hypertension 22359671 I10 stable and no major issues with meds Degenerati ve joint disease of shoulder region 83645978 M19.019 cont to have ongoing pain Herpes zoster 2392956 B0 2.9 did take valacyclov ir but had had for several weeks already Depressive disorder 3548 9007 F32.9 recc we try an SSRI [place] [id number] Keron Gan, [facility] Internal [facility] [address] [facility] [address] 10/28/2018 13:26:33 10/28/2018 14:36:36 Essential hypertension 12534088 I10 stable and no major issues with meds Type 2 mati betes mellitus 32703372 E11.65 a1c 8.5 again still elevated 8.5,7.6, 8.2 discussion at length about better with diet is much better with glucose readings will chk a1c in 3 months but i feel he needs to increase dose of the insulin will recc he increase the Levemir to Hepatitis C screening 41 6685766 Z11.59 will get next lab November CECILLE Martinez [facility] [address] [facility] [address],[place] [address] 02/05/2019 13:53:01 02/05/2019 14:23:10 Diffuse non-Hodgkin's lymphoma 192182973 C83.90 no immunosupp ressants Fever 229536703 R50.9 Tick bite 54981021 W57.X XXA [id number] Keron Gan DO [facility] Internal [facility] [address] [facility], [place] [address] [place] [address] 02/17/2019 10:12:15 02/17/2019 11:06:37 Type 2 diabetes mellitus 26127865 E11.65 a1c 8.5 again still elevated 8.5,7.6, 8.2 discussion at length about better with diet is much better with glucose readings will chk a1c in 3 months but i feel he needs to increase dose of the insulin will recc he increase the Levemir to Essential hypertension 91460613 I10 stable and no major issues with meds Hepatitis C screening 41 5187302 Z11.59 will get next lab Diffuse no n-Hodgkin's lymphoma 242179481 C83.90 having ongoing followup for the lymphoma with new constituti onal sx no major issues [id number] [facility] Internal Medicine [address] [facility], [employer] [facility] [address] 05/26/2019 10:27:31 05/26/2019 14:59:02 Type 2 diabetes mellitus 96529463 E11.65 a1c 7.3 again still elevated but much better now prior was:, 8.5, 8.5,7.6, 8.2 discussion at length about better with diet is much better with glucose readings will chk a1c in 3 months but i feel he needs to cont to eat smaller meals more frequently due to early satiety the Levemiris still but will decrease the dose if next a1c is still doing well Hyperlipidemia 22882314 E78.00 will get this next visit Essential hypertension 31908096 I10 stable and no major issues with meds Diffuse no n-Hodgkin's lymphoma 459872381 C83.90 having ongoing followup for the lymphoma with new constituti onal sx no major issues [id number] Keron Gan DO [facility] [address] [facility], [place] [employer] [address] 08/18/2019 10:40:28 08/18/2019 11:23:29 Type 2 diabetes mellitus 79675875 E11.65 a1c 7.6 again still elevated but much better now prior was:, 8.5, 8.5,7.6, 8.2, 7.3 discussion at length about better with diet is much better with glucose readings will chk a1c in 3 months but i feel he needs to cont to eat smaller meals more frequently due to early satiety the Levemiris 3030 still but will decrease the dose if next a1c is still doing well Essential hypertension 75644607 I10 stable and no major issues with meds Hyperlipidemia 46164596 E78.00 Well controlled Diffuse no n-Hodgkin's lymphoma 456146556 C83.90 Heme/Onc saw in Jun and no signs of lymphoma [id number] [facility] Internal Medicine [address] [facility],[place] [address] 11/17/2019 10:40:58 11/17/2019 11:07:28 Type 2 diabetes mellitus 72784509 E11.65 a1c 7.9 WAS 7.6 again still elevated but still better now prior was:, 8.5, 8.5,7.6, 8.2, 7.3 discussion at length about better with diet is much better with glucose readings will chk a1c in 3 months but i feel he needs to cont to eat smaller meals more frequently due to early satiety the Levemiris 30/30 still but will decrease the dose if next a1c is still doing well Essential hypertension 74978138 I10 stable and no major issues with meds [id number] [facility] [address] [facility],[place] [address] 02/20/2020 10:57:55 02/20/2020 11:59:25 Type 2 diabetes mellitus 65076845 E11.65 a1c is 6.7 was 7.9 WAS 7.6 againhe is much improved prior was:, 8.5, 8.5,7.6, 8.2, 7.3 discussion at length about better with diet is much better with glucose readings will chk a1c in 3 months but i feel he needs to cont to eat smaller meals more frequently due to early satiety the Levemiris 30 still l Essential hypertension 94936583 I10 stable and no major issues with meds Diffuse no n-Hodgkin's lymphoma 600070028 C83.90 Heme/Onc no signs of lymphoma due for appt later this year [id number] [facility]eron [facility] [address] [facility],[place] [address] 06/30/2020 08:33:59 06/30/2020 11:30:35 Diffuse non-Hodgkin's lymphoma 898871762 C83.90 Heme/Onc no signs of lymphoma last visit but is going back to [place] later this mo for PET scan due for appt later this year Essential hypertension 27426019 I10 stable and no major issues with meds Type 2 mati betes mellitus 95896492 E11.65 a1c is 6.4 now was 6.7 was 7.9 WAS 7.6 againhe is much improved prior was:, 8.5, 8.5,7.6, 8.2, 7.3 discussion at length about better with diet is much better with glucose readings will chk a1c in 3 months cont to eat smaller meals more frequently due to early satiety the Levemiris 30 [place] [id number] Keron ArguetaShital [facility] [address] [facility],[place] [address] 07/19/2020 11:53:04 07/19/2020 13:48:04 Essential hypertension 53893921 I10 stable and no major issues with meds Type 2 mati betes mellitus 95187700 E11.65 a1c is still 6.4 and was 6.4 now was 6.7 was 7.9 WAS 7.6 again he is much improved prior was:, 8.5, 8.5,7.6, 8.2, 7.3 discussion at length about better with diet is much better with glucose readings will chk a1c in 3 months cont to eat smaller meals more frequently due to early satiety the Levemiris 3030 still l Diffuse no n-Hodgkin's lymphoma 546315407 C83.90 Heme/Onc no signs of lymphoma last visit but is going back to [place] in 6 mo for PET scan due for appt later next year Pruritic rash 96446760 L 28.2 [id number] Keron Gan DO [facility] [address] [facility] [address] [place] [address] [facility] [address] 09/06/2020 08:36:08 09/06/2020 13:23:06 Pain in right knee 5960155872 98663 M25.561 [id number] Keron Gan DO [facility] [address] [facility] [address],[place] [address] 09/14/2020 11:15:13 09/14/2020 12:23:08 Edema of lower extremity 027746042 R60.0 will give him 3 days of diuretic and have him call us on fri with update believe this is from lymphatic damage from t he massive knee swelling he describes will follow instructed on potassium rich foods etc [id number] Keron Gan DO [facility] Internal [facility] [address] [facility],[place] [address] [facility] [address] 10/18/2020 11:26:18 10/18/2020 12:26:26 Type 2 diabetes mellitus 47299350 E11.65 a1c is markedly elevated at 8.0 he was 6.4 and was 6.4 now was 6.7 was 7.9 WAS 7.6 he again will need to be much improved prior was:, 8.5, 8.5,7.6, 8.2, 7.3 discussion at length about better with diet is much better with glucose readings will chk a1c in 3 months cont to eat smaller meals more frequently due to early satiety the Levemiris 30 still l Essential hypertension 49463759 I10 stable and no major issues with meds 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 Internal Medicine [address] [facility] [address] [place] [address] 01/19/2021 10:57:42 01/19/2021 12:25:44 Type 2 diabetes mellitus [id number] E11.65 a1c is now 6.8!!!!!!! ! in mati he was markedly elevated at 8.0 and prior he was 6.4 and was 6.4 was 6.7 was 7.9 WAS 7.6 he again will need to be much improved prior was:, 8.5, 8.5,7.6, 8.2, 7.3 discussion at length about better with diet is much better with glucose readings will chk a1c in 3 months cont to eat smaller meals more frequently due to early satiety the Levemiris 30 still l Essential hypertension [id number] I10 stable and no major issues with meds Closed fra cture of multiple right ribs [id number] S22.41XD slowly getting better will cont the local care Diffuse no n-Hodgkin's lymphoma 986024186 C83.90 Heme/Onc no signs of lymphoma last visit but is going back to [place] in 6 mo for PET scan due for appt later next year with [facility] and otherwise is stable now [id number] [facility] Internal Medicine [address] [facility] [address] [place] [address] 05/04/2021 09:49:54 05/04/2021 11:12:31 Type 2 diabetes mellitus [id number] E11.65 a1c is now 6.6 was 6.8!!!!!!! ! 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 Internal Medicine [address] [facility],[place] [address] 08/03/2021 10:09:06 08/03/2021 14:59:50 Type 2 diabetes mellitus 16408361 E11.65 all lab is pending and he has not done the lab prior appt :all lab is pending as he has not done it yet a1c is now 6.6 was 6.8!!!!!!! ! in mati he was markedly elevated at 8.0 and prior he was 6.4 and was 6.4 was 6.7 was 7.9 WAS 7.6has eye exam set updiscussi on at length about better with diet is much better with glucose readings will chk a1c in 3 months cont to eat smaller meals more frequently due to early satiety the Levemiris 30/30 still l Essential hypertension 47669893 I10 stable and no major issues with meds awaiting Lyme disease 07172514 A6 9.20 he has completed 28 days of doxycyclin ewe are waiting for the word from the rheumatolo gist [id number] [facility] Internal Medicine [address] [facility],[place] [address] 11/02/2021 10:09:35 11/02/2021 10:53:45 Type 2 diabetes mellitus 70934762 E11.9 all lab is pending and he has not done the lab prior appt :all lab is pending as he has not done it yet a1c is now 6.6 and prior was still 6.6 was 6.8!! in mati he was markedly elevated at 8.0 and prior he was 6.4 and was 6.4 was 6.7 was 7.9 WAS 7.6has eye exam set updiscussi on at length about better with diet is much better with glucose readings will chk a1c in 3 months cont to eat smaller meals more frequently due to early satiety the Levemiris 30/30 still l Essential hypertension 33277113 I10 stable and no major issues with meds awaiting Diffuse no n-Hodgkin's lymphoma [id number] C83.90 Heme/Onc no signs of lymphoma last visit but is going back to [place] in 6 mo for PET scan due for appt later next year with [facility] and otherwise is stable now [id number] [facility] Internal Medicine [address] [facility] [address],[place] [address] [place] [address] 02/15/2022 10:22:35 02/15/2022 11:02:54 Type 2 diabetes mellitus 89705643 E11.65 a1c is 7.7 and i warned him the issues of allowing the glucose elevatedpr ior appt :has eye exam set updiscussi on at length about better with diet is much better with glucose readings will chk a1c in 3 months cont to eat smaller meals more frequently due to early satiety the Levemiris still l Essential hypertension 82702733 I10 stable and no major issues with meds awaiting Hyperlipidemia 59912684 E78.00 Well controlled [id number] [facility] Internal Medicine [address] [facility],[place] [address] [place] [address] 05/19/2022 10:13:37 05/19/2022 13:02:32 Type 2 diabetes mellitus 15147666 E11.65 a1c is 8.4 was 7.7 and i warned him the issues of allowing the glucose elevatedpr ior appt :taking levemir 30/30 and is tolerating will stop the glimepirid e and start jardiance 25mg po qday Essential hypertension 69569492 I10 stable and no major issues with meds awaitingst able and not having any issues [id number] [facility] Internal Medicine [address] [facility] [address] [place] [address] 06/28/2022 14:52:37 06/28/2022 16:17:16 Type 2 diabetes mellitus 41098615 E11.65 a1c is now back down to 7.7 8.4 was 7.7 and i warned him the issues of allowing the glucose elevatedpr ior appt :taking levemir 30/30 and is tolerating will stop the glimepirid e and continue the jardiance 25mg po qday and will try to get it with the insurancea nd relates he was out of insulin for a week Essential hypertension 27965918 I10 stable and no major issues with meds awaitingst able and not having any issues Active or passive immunization 173155557 Z23 patient advised he is due for pneu 23 & shingles [id number] [facility] Internal Medicine [address] [facility],[place] [employer] [place] [place] [address] 10/31/2022 15:31:17 10/31/2022 16:02:20 Essential hypertension 09982944 I10 stable and no major issues with meds awaitingst able and not having any issues Type 2 mati betes mellitus 56823206 E11.9 a1c is now up to 8.5 but this was because of the lack of insulin for several weeks due to pharmacy issues he had been 7.7 8.4 was 7.7 and i warned him the issues of allowing the glucose elevatedha s not had any problems with the jardiancet aking levemir 30/30 and he is now having low sugars and a hypoglycem ic episode will decrease the levemir to 26 and 26continue the jardiance 25mg po qday and will try to get it with the insurance Diffuse no n-Hodgkin's lymphoma 727816150 C83.90 he was seen in late fall , was told that the lesion in question has not changed and they will just follow [id number] [facility] Internal Medicine [address] [facility],[place] [address] 03/05/2023 10:45:46 03/05/2023 11:42:15 Type 2 diabetes mellitus 36065098 E11.9 a1c is nowdown to 7.3 (was up to 8.5 but this was because of the lack of insulin for several weeks due to pharmacy issues he had been 7.7 8.4 was 7.7 and i warned him the issues of allowing the glucose elevated)h as not had any problems with the jardiancet aking levemir 24 bidcontinu e the jardiance 25mg po qday and will try to get it with the insurance Essential hypertension 03167722 I10 stable and no major issues with meds awaitingst able and not having any issues Advance care planning 71 8652506 Z71.89 utd [id number] Keron Gan DO [facility] Internal Medicine [address] [facility],[place] [address] 07/24/2023 15:48:34 07/24/2023 16:33:30 Essential hypertension 59464783 I10 stable and no major issues with meds awaitingst able and not having any issues Type 2 mati betes mellitus 25151265 E11.9 doing well taking full jardiance and doing great will need a1c [id number] DORYS SWENSON [facility] Internal Medicine [address] [facility],[place] [address] 09/11/2023 09:46:10 09/11/2023 13:42:19 Rash of groin [id number] 0951482 R21 will fu with patient at the end of his course of medication s Diffuse no n-Hodgkin's lymphoma 880884408 C83.90 stable Type 2 mati betes mellitus 19700915 E11.9 stable Candidal intertrigo 2661 66318 B37.2 start dual treatment given rash [id number] Keron Gan DO [facility] Internal Medicine [address] [facility],[place] [address] 10/26/2023 10:10:04 10/26/2023 10:57:43 Essential hypertension 05139489 I10 stable and no major issues with meds awaitingst able and not having any issues Hyperlipidemia 42675761 E78.00 Well controlled Type 2 mati betes mellitus 71187851 E11.9 doing well taking full jardiance and doing great will need a1c [id number] Keron Gan DO [facility] Internal Medicine [address] [facility],[place] [address] 01/30/2024 10:39:26 01/30/2024 12:04:38 Essential hypertension 17039092 I10 stable and no major issues with meds awaitingst able and not having any issues Hyperlipidemia 30027764 E78.00 Well controlled Type 2 mati betes mellitus 33767329 E11.9 has stopped jardiance on own his a1c is 7 will need a1c in 3 mo and see if this risesnote has a elevated gluc around supper timerelate s that he is sometime s eating too much he has gained a little wgt but is otherwise ok Depression screening 171 427986 Z13.31 neg [id number] Keron Gan, [facility] Internal Medicine [address] [facility] [address],[place] [address] 06/02/2024 11:07:43 06/02/2024 15:37:05 Type 2 diabetes mellitus 42333597 E11.9 his a1c is 6.[address] down on snackingno te has a elevated gluc around supper time but not muchrelate s that he is sometime s eating too much he has gained a little wgt but is otherwise ok Gastroesop hageal reflux disease 145973451 K21.9 taking omeprazole Essential hypertension 94526688 I10 stable and no major issues with meds awaitingst able and not having any issues [id number] DORYS SWENSON [facility] Internal Medicine [address] [facility] [address],[place] [address] 09/30/2024 13:29:28 09/30/2024 15:56:08 Pain of left wrist [id number] 55514 M25.532 Pain in lumbar spine 267 521665 M54.51 Weakness o f right lower limb 1675561073 35829 M62.81 [id number] DORYS SWENSON [facility] Internal Medicine [address] [facility] [address],[place] [address] 10/28/2024 13:52:25 10/28/2024 16:15:40 Pressure injury 5956340860 L89.90 will set up with at home wound care due to fracture, he can't drive himself Edema of l ower extremity 165816347 R60.0 small dose, keep elevated Health Concerns Section Related Observation LastModified by Organization Detai ls LastModified Time None Recorded Concern Status LastModified by Organization Details LastModified Time None Recorded Advance Directives Directive None Recorded Payers Encounter Date Sequence Insurance Name Policy Number Policy Cr Covered Member ID Cr Member ID Guarantor Name 10/26/2023 1 MEDICARE B-UT: [facility] Jimmy Lehman Jr [id number] Christangelina Lehman 10/26/2023 2 [facility] (MEDICARE SUPPLEMENT) Osiel Venegas Dominik [id number] Christsantanaquincy Lehman 01/30/2024 1 MEDICARE B-UT: [facility] Jimmy Lehman Jr [id number] Christangelina Lehman 01/30/2024 2 [facility] (MEDICARE SUPPLEMENT) Alexisantanaquincy Theo Dominik [id number] Christsantanaer Lehman 06/02/2024 1 MEDICARE B-UT: [facility] Jimmy Lehman Jr [id number] Christsantanaquincy Dominik 06/02/2024 2 [facility] (MEDICARE SUPPLEMENT) Alexiangelina Venegas Dominik [id number] Ivánquincy Lehman 09/30/2024 1 MEDICARE B-UT: [facility] Jimmy Lehman Jr [id number] Osiel Lehman 09/30/2024 2 [facility] (MEDICARE SUPPLEMENT) Osiel Lehman [id number] Christsantanaquincy Lehman 10/28/2024 1 MEDICARE B-UT: [facility] Jimmy Lehman Jr [id number] Alexisantanaquincy Dominik 10/28/2024 2 [facility] (MEDICARE SUPPLEMENT) Ivánquincy Theo Dominik [id number] Osiel Lehman Notes Date Note Type Note Provider Name and Address Organization Details Recorded Time 4 text/htm l Care Management - DiabetesReported bypatient.Self Care:seeing eye doctor yearly for dilated eye exam; checking feet regularly; normal range of home blood sugars (in the low 100s); no side effects from medications Associated Symptoms:symptoms are usually well controlled; no fatigue; no dizziness; no excessive sweating; no headaches; no confusion; no increased thirst; no increased appetite; no increased urination; no blurred vision; no numbness of feet; no calluses on feetCare Management - HypertensionReported bypatient.Self Care:not under emotional stress Severity:symptoms are improving; does not interfere with daily activities Associated Symptoms:no dizziness; no lightheadedness; no chest pain; no shortness of breath; no palpitations; no edema; no calf muscle cramps; no blurred vision; no confusion; no headaches; no fatigue hhere for rechk and is doing pretty well relates his glucose readings at home are running goodfeels wellhad good colonos copy one adenoma Keron Gan DO [address] [place], [address], [facility] Internal [facility] 10/26/2023 10:31:44 4 text/htm l he stopped the jardiance on his ownhis sugars at home have been excellent and no issues Keron Gan DO [address] [place], [address], [facility] Internal [facility] 01/30/2024 11:11:58 4 text/htm l Care Management - DiabetesReported bypatient.Self Care:seeing eye doctor yearly for dilated eye exam; checking feet regularly; normal range of home blood sugars (in the low 100s); no side effects from medications Associated Symptoms:symptoms are usually well controlled; no fatigue; no dizziness; no excessive sweating; no headaches; no confusion; no increased thirst; no increased appetite; no increased urination; no blurred vision; no numbness of feet; no calluses on feet here for rechkrelates that there is a lot of stress at homehome glucose readings are excellent for most parthe is careful with dietvision follows eye dr Keron Gan, [address] [place], [address], [facility] Internal Medicine 06/02/2024 11:45:25 5 text/htm l c/o fall, right humerus fx The patient is participating in this appointment via telemedicine communication with a phone call/video calling service ([employer])The patient consents to use of these platforms in place of an in-person appointment due to either sick symptoms the patient is presenting with or current office closure due to COVID exposure in order to keep our office staff and patients safe the patient broke his right arm (humerus fracture) yesterdaywas put in a sling and has a f/u with orthopedics tomorrow patient slipped and fell, caught himself, then twisted again and ended up twisting his arm behind his back the patient reports right leg numbness and limping, very weak, is not responding to him trying to move his leg the patient is having left wrist pain, completely stiff and significant loss of ROMthe patient needs new XRs for what they didn't check DORYS SWENSON [address] [place], [address], [place] [facility] Internal Medicine 09/30/2024 15:44:23 5 text/htm l c/o pressure ulcer the patient has a [...] small dose of diuretic DORYS SWENSON [address] [place], [address], [place] [facility] Internal Medicine 10/28/2024 14:38:59
--- OUTSIDE RECORDS SUMMARY | 2024-10-29 16:00 | XMS_ITS | Continuity of Care Document ---
Author Organization [place] [facility], [facility] Address [address] [place] [address] [place] [address] Assessment Encounter Date Assessment Date Assessment LastModified by Organization Details LastModified Time 09/30/2024 09/30/2024 Patient agreed and verbally consents to this audio and video Telehealth appt via a secure platform [email or web address] Not available 09/30/2024 15:33:02 Plan of Treatment Reminders Order Date Submit Date Provider Last Modified By Organization Details Last Modified Time Details Appointments FOLLOW UP 15 2024 02:15P M DR GAN Not available Not available Not available Lab None recorded. Referral None recorded. Procedures None recorded. Surgeries None recorded. Imaging XR, lumbosacr al spine, 2 or 3 view 2024 025 [facility] Central Scheduling (Not Breast), [address] [place] [address], [id number], 10/02/2024 10:16:00 XR, femur, 2 or more view 2024 025 [facility] Outpatient Imaging Central Scheduling (Not Breast), [address] [place] [address], [id number], 10/14/2024 09:00:00 XR, tibia + fibula, 2 view 2024 025 [facility] Outpatient Imaging Central Scheduling (Not Breast), [address] [place] [address], [id number], 10/02/2024 10:18:39 XR, wrist, 3 or more view 2024 025 [facility]patient Imaging Central Scheduling (Not Breast), [address] [place] [address], [id number], 10/02/2024 11:29:00 XR, forearm, 2 view 2024 025 [facility] - Outpatient Imaging Central Scheduling (Not Breast), [address] [place] [address], [id number], 10/02/2024 10:13:59 Medication Orders None recorded. Patient TargetsNo targets recorded. Patient InstructionsNo instructions recorded. Reason for Referral None Reported. Results Created Date Observation Date Name Description Value Unit Range Abnormal Flag Note LastModifiedBy Organization Detail LastModifiedTime 10/02/1910/01/2024 XR, forea rm, 2 view No observ ation record ed. [address], [address], 10/03/2024 09:51:07 10/02/1910/01/2024 XR, wrist , 3 or more view No observ ation record ed. [address], [address], 10/03/2024 09:51:08 10/02/1910/01/2024 XR, lumbo sacra l spine , 2 or 3 view No observ ation record ed. [facility] [address], [place], [address], 10/03/2024 09:51:08 10/02/1910/01/2024 XR, forea rm, 2 view No observ ation record ed. [address], [address], 10/03/2024 09:51:08 10/02/1910/01/2024 XR, tibia + fibul a, 2 view No observ ation record ed. [facility] [address], [place], [address], 10/03/2024 09:51:09 Result Notes None recorded. 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 57688080479 266271 Active 2018 Not Available [facility] 20:36:44 Type 2 diabetes mellitus 21690930 Active 2017 Not Available [facility] 20:36:44 Retinal detachme nt 67012314 Active 2017 Not Available [facility] 20:36:44 Hyperlip idemia 46796129 Active 2017 Not Available [facility] 20:36:44 [facility]ia l hyperten karina 56920291 Active 2017 Not Available [facility] 20:36:44 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 44400421 Active 2017 Not Available [facility] 20:36:44 Herpes simplex 19902982 Active 2017 Not Available [facility] 20:36:44 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 Not Available [facility] 20:36:44 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 Not Available [facility] 20:36:44 Gastroes ophageal reflux disease 309800574 Active 2020 Not Available [facility] 20:36:44 Rash of groin 97732719799 845642 Active 2023 DORYS SWENSON [address] [place] [address], [address], [facility] 4 09:57:20 Candidal intertri go 221384153 Active 2023 DORYS SWENSON [address] [place] [address], [address], [facility] 4 09:58:21 Pain of left wrist 07313717373 9102 Active 2024 DORYS SWENSON [address] [place] [address], [address], [facility] 5 15:32:36 Pain in lumbar spine 885702379 Active 2024 DORYS SWENSON [address] [place], [address], [facility] 5 15:32:43 Weakness of right lower limb Active 2024 DORYS SWENSON [address] [place] [address], [address], [facility] 5 15:32:56 Compress ion fracture of L2 51364066545 717254 Active 2024 DORYS SWENSON [address] [place] [address], [address], [facility] 5 09:52:02 Pressure injury 0467272939 Active 2024 DORYS SWENSON [address] [place] [address], [address], [facility] 5 14:14:12 Edema of lower extremit y 375325905 Active 2024 DORYS SWENSON [address] [place] [address], [address], [facility] 5 14:15:21 Problem Notes None recorded. Procedures Surgical History Date Name Laterality Status Provider Name and Address Organization Details Recorded Time 10/29/19 25 WOUND CARE completed DORYS SWENSON [address] [place] [address], [address], [facility] 10/28/2024 14:22:44 09/10/19 19 colonoscopy completed Angi [facility] 09/11/2018 09:18:58 Imaging Results None recorded. Procedure Notes None recorded. Medical Equipment None Reported. Allergies Allergen ID Allergen Name Allergen Category Reaction Reaction Severity Criticality Documentation Date Start Date Code Code System Note Provider Name and Address Organization Details Recorded Time 335 Cialis medicatio n rash Not available Not available 10/30/2017 88345 3 [facility] 16:30:10 336 Substance with sulfonami de structure and antibacte rial mechanism of action (substanc e) medicatio n Not available Not available Not available 10/30/2017 70811 8003 SNOMED [facility] 8 16:30:16 337 penicilli n V Not available Not available Not available Not available 10/30/2017 7984 RxNorm May Nair [facility] 8 16:30:21 338 metformin medicatio n Not available Not available Not available 10/30/2017 6809 RxNorm May Nair [facility] 8 16:30:26 339 lisinopri l medicatio n Not available Not available Not available 10/30/2017 94817 RxNorm Marlen Akbarjanel [facility] 0 09:30:41 4439 morphine medicatio n vomiting Not available Not available 12/15/2020 7052 RxNorm Marlen Mullenmary jane [facility] 1 15:03:22 5164 doxycycli ne Not available rash moderate Not available 08/03/20212020 3640 RxNorm Keron Gan, [address] [place], [address] 1 10:47:48 Medications Name Sig Start Date [...] Not Available Not Available No t Available Anthonyagldylon IbarraikPen U-100 Insulin 100 unit/mL (3 mL) subcutaneou s INJECT 24 UNITS TWICE A DAY active Not Available Not Available No t Available Shingrix (PF) 50 mcg/0.5 mL intramuscul ar suspension, kit 05/26 completed Not Available Not Available Not Available Vitals None Recorded Social History Question Answer Notes LastModified by [...] Details Recorded Time Tdap 8 [facility] 14:00:33 Influenza, split virus, quadrivalent, preservative 1 completed Keron Gan DO [address] [place] [address], [address], [facility] 06/16/2021 16:53:05 COVID-19, mRNA, LNP-S, PF, 30 mcg/0.3 mL dose 1 completed [facility] 06/24/2021 08:21:55 Influenza, split virus, quadrivalent, preservative 0 completed Keron Gan DO [address] [place] [address], [address], [facility] 06/10/2020 20:09:05 Pneumococcal conjugate PCV 13 0 completed Keron Gan DO [address] [place] [address], [address], [facility] 07/20/2020 13:35:49 zoster recombinant 9 completed May Nair jer[facility] 10/18/2020 11:57:10 COVID-19, mRNA, LNP-S, PF, 30 mcg/0.3 mL dose 1 terrence wilcox [facility] 01/18/2021 09:08:47 COVID-19, mRNA, LNP-S, PF, 30 mcg/0.3 mL dose 1 terrence Nair jeri [facility] 01/18/2021 09:08:52 Past Encounters Encounter ID Performer Location Encounter Start Date Encounter Closed Date Diagnosis/Indication Diagnosis SNOMED-CT Code Diagnosis ICD10 Code Diagnosis Note [id number] DORYS SWENSON [facility] [address] [facility] [address] 09/30/2024 13:29:28 09/30/2024 15:56:08 Pain of left wrist 4213894917 84723 M25.532 Pain in lumbar spine 267 706993 M54.51 Weakness o f right lower limb 9327461498 34353 M62.81 Health Concerns Section Related Observation LastModified by Organization Detai ls LastModified Time None Recorded Concern Status LastModified by Organization Details LastModified Time None Recorded Payers Encounter Date Sequence Insurance Name Policy Number Policy Cr Covered Member ID Cr Member ID Guarantor Name 09/30/2024 1 MEDICARE B-[place]: [employer] Jimmy Lehman [id number] Osiel Lehman 09/30/2024 2 [facility] (MEDICARE SUPPLEMENT) Osiel Lehman [id number] Osiel Lehman Notes Date Note Type Note Provider Name a nd Address Organization Details Recorded Time 09/30/2024 text/html c/o fall, right humerus fx The patient is participating in this appointment via telemedicine communication with a phone call/video calling service (Doxy)The patient consents to use of these platforms [...] for what they didn't check DORYS SWENSON [address] [place] [address], [place], [address], [facility] 09/30/2024 15:44:23
== END 2024-10-28 13:23 | disposition home or self-care (01) ==
LOC: HO.MANLNP 13:22
PROVIDERS: Visit Provider Physician Assistant
DX: L89.90 Pressure ulcer of unspecified site, unspecified stage (principal)
CPT/HCPCS: 87070; 87077; 87205

== ENCOUNTER 2024-11-11 08:36 | Outpatient (REF) | payer MEDICARE, OTHER, SELFPAY ==
[2024-11-11 13:36] LABS: Estimated Average Glucose 131 mg/dL; Hemoglobin A1C 121.2526 umol/L; Hemoglobin A1c % 6.2 % (<6.0)
[2024-11-11 13:44] LABS: Alanine Aminotransferase 11 U/L (0-40); Alkaline Phosphatase 97 U/L (39-117); Anion Gap 13 (12-20); Aspartate Amino Transferase 27 U/L (5-37); Bilirubin Total 0.5 mg/dL (0.0-1.0); Blood Urea Nitrogen 29 mg/dL (9-16); Calcium 9.6 mg/dL (8.4-10.2); Carbon Dioxide 25 mmol/L (22-29); Chloride 108 mmol/L (96-108); Cholesterol 130 mg/dL (<200); Estimated Glomerular Filt Rate > 60; Glucose Random 53 mg/dL (60-115); HDL Cholesterol 29 mg/dL (>40); LDL Cholesterol Calculated 83 mg/dL (<100); Potassium 4.1 mmol/L (3.3-5.1); Sodium 142 mmol/L (135-145); Total Protein 7.5 g/dL (6.5-8.0); Triglycerides 94 mg/dL (<150)
== END 2024-11-11 08:37 | disposition home or self-care (01) ==
LOC: HO.MANLDS 08:36
PROVIDERS: Visit Provider Internal Medicine
DX: E11.9 Type 2 diabetes mellitus without complications (principal)
CPT/HCPCS: 36415; 80053; 80061; 83036

== ENCOUNTER 2025-03-17 10:45 | Outpatient (REF) | payer MEDICARE, OTHER, SELFPAY ==
--- OUTSIDE RECORDS SUMMARY | 2025-03-17 12:01 | XMS_ITS | Encounter Summary ---
Author Organization [facility] Address [address] [place] [address] Phone Care Team Providers Care It Generalist Name Role Phone Terrence Foley MD Unavailable [phone] Isis Shay RN Unavailable [email or web address] Kiran Arellano MD Unavailable [phone] Keron Lima DO Primary Care Provider [phone] Encounter Details Date Type Department Care Team (Late st Contact Info) Description 02/16/2025 Orders Only [facility] [address] [place] [address] Chantell Barry [facility] [address] [place] [address] [email or web address] Diffuse large B-cell lymphoma, unspecified body region (Primary Dx) Social History Tobacco Use Types Packs/Day Years Used Date Smoking Tobacco: Former Cigarettes 1 1970 Smokeless Tobacco: Never Alcohol Use Standard Drinks/Week Comments Not Currently 2 (1 standard drink = 0.6 oz pur e alcohol) Home Health Assessment: Transportation Answer Date Recorded Lack of Transportation (Medical) No 11/21/2024 Lack of Transportation (Non-Medical) No 11/21/2024 Patient Unable or Declines to Respond No 11/21/2024 Education Answer Date Recorded Are you interested in more education? Not on eber e 12/22/2022 Are you concerned about learning? Not on file 12/22/2022 No 12/22/2022 No 12/22/2022 Digital Access Answer Date Recorded No 01/22/2023 No 01/22/2023 Reliable internet access at home? Not on file 01/22/2023 Device with a working camera? Not on file Intimate Partner Violence Answer Date R ecorded Are you denied basic needs s uch as food, clothing, or medical care? No 09/29/2024 In the past 12 months have y ou been in a relationship with a person who hurts, threatens, or tries to control you? No 09/29/2024 Are you denied basic needs s uch as food, clothing, or medical care? No 09/29/2024 In the past 12 months have y ou been in a relationship with a person who hurts, threatens, or tries to control you? No 09/29/2024 Sex and Gender Information Value Date Recorded Sex Assigned at Male 12/14/2020 7:39 AM EDT Legal Sex Male 9:31 AM EDT Gender Identity Male 09/29/2024 12:01 PM EST Sexual Orientation Not on file documented as of this encounter Plan of Treatment Upcoming Encounters Date Type Department Care Team (Late st Contact Info) Description 04/02/2025 10:30 AM EDT Office Visit [address] [address] Haroldo Steele PA-C [address] [facility], [place] [address] Perla Mckeon, PT [address] [place] [address] 04/08/2025 9:45 AM EDT Office Visit [address] [address] Haroldo Steele PA-C 4 [facility], [place] [address] Perla Mckeon, PT [address] [place] [address] 04/15/2025 11:00 AM EDT Office Visit [facility] [address] [place] [address] Keron Delgado PA-C [address] [place] [address] [place] [address] [email or web address] documented as of this encounter Results * LDH (02/23/2025 8:04 AM EDT) LDH 184 118 - 273 U/L [facility] Blood 02/23/2025 8:04 AM EDT 02/23/2025 8:12 AM EDT us Kiran Arellano MD LAB BLOOD ORDERABLES Final Res ult Performing Organization Address City/State/[facility] Co de Phone Number [facility] [address] [place] [address] * (ABNORMAL) Comprehensive metabolic panel (02/23/2025 8:04 AM EDT) SODIUM 140 133 - 146 mmol/L [facility] POTASSIUM 4.5 3.3 - 5.1 mmol/L [facility] CHLORIDE 105 96 - 108 mmol/L [facility] CO2 25 21 - 35 mmol/L [facility] BUN 21(H) 6 - 19 mg/dL [facility] CREATININE 1.20 0.5 - 1.5 mg/dL [facility] GLUCOSE 170(H) 70 - 99 mg/dL [facility] ALBUMIN 3.9 3.9 - 4.8 g/dL [facility] TOTAL PROTEIN 6.7 6.5 - 8.0 g/dL [facility] CALCIUM 9.4 8.4 - 10.3 mg/dL [facility] ALKALINE PHOSPHATASE 95 39 - 117 U/L [facility] TOTAL BILIRUBIN 0.4 0.0 - 1.2 mg/dL [facility] AST 16 0 - 37 U/L [facility] ALT 12 0 - 40 U/L [facility] GLOBULIN 2.8 1 - 4.8 g/dL [facility] EGFR 63 >59 mL/min/1.7 3m2 [facility] Comment:Estimated glomerular filtration rate calculated using the CKD-EPI refit equation. ANION GAP 15 10 - 20 mmol/L [facility] Blood 02/23/2025 8:04 AM EDT 02/23/2025 8:12 AM EDT us Kiran Arellano MD LAB BLOOD ORDERABLES Final Res ult [facility] [address] [place], [place] [id number] * (ABNORMAL) CBC and differential (02/23/2025 8:04 AM EDT) WBC 5.97 4.00 - 11.00 K/uL [facility] RBC 3.51(L) 4.50 - 5.90 M/uL [facility] HGB 11.1(L) 13.5 - 17.5 g/dL [facility] HCT 35.6(L) 41.0 - 53.0 % [facility] PLT 201 150 - 450 K/uL [facility] MCV 101.4(H) 80.0 - 100.0 fL [facility] MCH 31.6(H) 27.0 - 31.0 pg [facility] MCHC 31.2(L) 32.0 - 36.0 g/dL [facility] RDW 13.7 11.5 - 14.5 % [facility] MPV 10.3 8.4 - 12.0 fL [facility] NRBC 0.00 0.00 /100 WBCs [facility] ABSOLUTE NRBC 0.00 0.00 K/uL [facility] DIFF METHOD Auto [facility] NEUTS 74.9 48.0 - 76.0 % [facility] LYMPHS 12.6(L) 18.0 - 41.0 % [facility] MONOS 8.9 4.0 - 11.0 % [facility] EOS 2.8 0.0 - 5.0 % [facility] BASOS 0.5 0.0 - 1.5 % [facility] Granulocytes, immature (%) 0.3 0.0 - 0.9 % [facility] ABSOLUTE NEUTS 4.47 1.92 - 7.60 K/uL [facility] ABSOLUTE LYMPHS 0.75 0.72 - 4.10 K/uL [facility] ABSOLUTE MONOS 0.53 0.16 - 1.10 K/uL [facility] ABSOLUTE EOS 0.17 0.00 - 0.50 K/uL [facility] ABSOLUTE BASOS 0.03 0.00 - 0.15 K/uL [facility] Granulocytes, immature 0.02 0.00 - 0.09 K/uL [facility] Blood 02/23/2025 8:04 AM EDT 02/23/2025 8:12 AM EDT us Kiran Arellano MD LAB BLOOD ORDERABLES Final Res ult [address] [address] documented in this encounter Visit Diagnoses Diagnosis Diffuse large B-cell lymphoma, unspecified body region- Primary documented in this encounter Care Teams It Generalist Relationship Specialty Start Date End Date Keron Lima DO [address] [place] [phone] [email or web address] PCP - General Internal Medicine 09/29/24 Terrence Foley MD [address] [place] [id number] [email or web address] Primary Oncologist Medical Oncology 04/12/17 Isis Shay, RN [address] [place] [phone] [email or web address] Primary Infusion Nurse 07/09/17 Kiran Arellano MD [address] [place] [address] Primary Oncologist Medical Oncology 10/04/20 documented as of this encounter Additional Source Comments The information contained in this document represents components of the legal health record. It is not the complete legal health record.[facility]
--- OUTSIDE RECORDS SUMMARY | 2025-03-17 12:01 | XMS_ITS | Data Portability ---
Author Organization [facility], Telehealth Patient Home Address [address] [place] [address] Assessment Encounter Date Assessment Date Assessment LastModified by Organization Details LastModified Time 06/02/2024 06/02/2024 [id number] [place] [id number] (OIL CHANGER) MDM MODERATE MUST MEET 2 OUT OF [...] secure platform [email or web address] Not available 09/30/2024 15:33:02 11/19/2024 11/19/2024 [id number] [place] [address] (OIL CHANGER) MDM MODERATE MUST MEET 2 OUT OF [...] EACH ELEMENT THAT IS COVERED Not available 11/19/2024 14:36:52 Plan of Treatment Reminders Order Date Submit Date Provider Last Modified By Organization Details Last Modified Time Details Appointments FOLLOW UP 15 2024 11:30A M DR GAN Not available Not available Not available Lab HbA1c (hemoglob in A1c), blood 2024 025 [facility], [address] [place] [address], [id number], 11/19/2024 14:42:16 microalbu min, urine 2024 025 [facility], [address] [place] [address], [id number], 11/19/2024 14:42:16 CMP, serum or plasma 2024 025 [facility], [address] [place] [address], [address], 11/19/2024 14:42:16 PSA, serum or plasma 2024 025 [facility], [address] [place] [address], [address], 11/19/2024 14:42:16 CBC 2024 025 [facility], [address] [place] [address], [address], 02/23/2025 09:39:45 lipid panel, blood 2024 025 [facility], [address] [place] [address], [id number], 11/19/2024 14:42:16 culture, wound 2024 025 [facility], [address] [place] [address], [address], 10/30/2024 16:38:50 Referral wound care referral 2024 025 [facility] - New Referrals Only, [address], [place], [address], 10/29/2024 08:20:50 Procedures None recorded. Surgeries None recorded. Imaging XR, lumbosacr al spine, 2 or 3 view 2024 025 [facility] Central Scheduling (Not Breast), [address] [place], [address], 10/02/2024 10:16:00 XR, femur, 2 or more view 2024 025 [facility] Central Scheduling (Not Breast), [address] [place], [address], 10/14/2024 09:00:00 XR, tibia + fibula, 2 view 2024 025 [facility] - Outpatient Imaging Central Scheduling (Not Breast), [address] [place], [address], 10/02/2024 10:18:39 XR, wrist, 3 or more view 2024 025 [facility] - Outpatient Imaging Central Scheduling (Not Breast), [address] [place], [address], 10/02/2024 11:29:00 XR, forearm, 2 view 2024 025 [facility] Central Scheduling (Not Breast), [address] [place] [address], [address], 10/02/2024 10:13:59 Medication Orders prednison e 10 mg tablet 2024 [address] [facility]/Pharmacy #[id number], [address] [place], [address], 03/10/2025 14:16:28 cephalexi n 500 mg capsule 2024 025 [facility]/Pharmacy #2024, [address] [place], [address], 03/10/2025 14:16:27 torsemide 10 mg tablet 2024 025 [facility]/Pharmacy #5, [address] [place], [address], 10/28/2024 14:24:17 Patient TargetsNo targets recorded. Patient InstructionsNo instructions recorded. Reason for Referral Referring Physician: Lisa Lane, Internal Medicine, Encounter Date: 10/28/2024 Results Created Date Observation Date Name Description Value Unit Range Abnormal Flag Note LastModifiedBy Organization Detail LastModifiedTime 10/02/1910/01/2024 XR, forea rm, 2 view No observ ation record ed. [address], [address], 10/03/2024 09:51:07 10/02/19 25 10/01/2024 XR, wrist , 3 or more view No observ ation record ed. [address], [address], 10/03/2024 09:51:08 10/02/19 25 10/01/2024 XR, lumbo sacra l spine , 2 or 3 view No observ ation record ed. [facility] [address] [facility] [address], [place], [address], 10/03/2024 09:51:08 10/02/19 25 10/01/2024 XR, forea rm, 2 view No observ ation record ed. [address], [address], 10/03/2024 09:51:08 10/02/19 25 10/01/2024 XR, tibia + fibul a, 2 view No observ ation record ed. [facility] [address] [facility] [address], [place], [address], 10/03/2024 09:51:09 11/20/1911/16/2024 MRI, lumba r spine , w/o contr ast No observ ation record ed. [facility] [address] [facility], [place], [address], 11/28/2024 08:48:25 Result Notes None recorded. Problems Name Problem SNOMED Code Status Onset Date Resolution Date Notes Provider Name and Address Organization Details Recorded Time Type 2 diabetes mellitus 55666044 Active 2017 Not Available [facility] 20:36:44 Retinal detachme nt 38960896 Active 2017 Not Available [employer] 20:36:44 Hyperlip idemia 82996875 Active 2017 Not Available [employer] 20:36:44 [facility] hyperten karina 82353569 Active 2017 Not Available [employer] 20:36:44 Osteoart hritis of shoulder region 85875880 Active 2017 Not Available [employer] 20:36:44 Herpes simplex 65611232 Active 2017 Not Available [employer] 20:36:44 Basal cell carcinom a of skin 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 Not Available [employer] 20:36:44 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 Not Available [facility] 20:36:44 Diffuse non-Hodg kin's lymphoma 813493962 Active 2017 B cell Not Available [employer] 20:36:44 Herpes zoster 2360241 Active 2017 Not Available [facility] 20:36:44 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 88105516400 626830 Active 2018 Not Available [employer] 20:36:44 Gastroes ophageal reflux disease 349130905 Active 2020 Not Available [facility] 1 20:36:44 Rash of groin 09874028020 731859 Active 2023 DORYS SWENSON [address] [place], [address], [facility] 4 09:57:20 Candidal intertri go 299396883 Active 2023 DORYS SWENSON [address] [place], [address], [facility] 4 09:58:21 Pain of left wrist 64143278923 9102 Active 2024 [address]ORYS SWENSON [address] [place] [address], [address], [facility] 5 15:32:36 Pain in lumbar spine 137502893 Active 2024 DORYS SWENSON [address] [place] [address], [address], [facility] 5 15:32:43 Weakness of right lower limb Active 2024 DORYS SWENSON [address] [place] [address], [address], [facility] 5 15:32:56 Compress ion fracture of L2 86747676873 676723 Active 2024 DORYS SWENSON [address] [place] [address], [address], [facility] 5 09:52:02 Pressure injury 7855352571 Active 2024 DORYS SWENSON [address] [place] [address], [address], [facility] 5 14:14:12 Edema of lower extremit y 200216968 Active 2024 DORYS SWENSON [address] [place], [address], [facility] 5 14:15:21 Candidia sis of skin 24791523 Active 2024 DORYS SWENSON [address] [place], [address], [facility] 5 14:04:16 Closed fracture of right humerus 45908528846 955879 Active 2024 Keron Gan, [address] [place], [address], [facility] 5 14:37:27 Allergic contact dermatit is caused by plant material 98085563806 701691 Active 2024 DORYS SWENSON [address] [place], [address], [facility] 5 14:07:35 Problem Notes None recorded. Procedures Surgical History Date Name Laterality Status Provider Name and Address Organization Details Recorded Time 10/29/19 25 WOUND CARE completed DORYS SWENSON [address] [place], [address], [facility] 10/28/2024 14:22:44 09/10/19 19 colonoscopy completed Angi Dyson [facility] 09/11/2018 09:18:58 Imaging Results None recorded. Procedure Notes None recorded. Medical Equipment None Reported. Allergies Allergen ID Allergen Name Allergen Category Reaction Reaction Severity Criticality Documentation Date Start Date Code Code System Note Provider Name and Address Organization Details Recorded Time 335 Cialis medicatio n rash Not available Not available 10/30/2017 59421 3 RxNorm May wilcox [facility] 8 16:30:10 336 Substance with sulfonami de structure and antibacte rial mechanism of action (substanc e) medicatio n Not available Not available Not available 10/30/2017 77169 8003 SNOMED May wilcox [facility] 8 16:30:16 337 penicilli n V Not available Not available Not available Not available 10/30/2017 7984 RxNorm May wilcox [facility] 8 16:30:21 338 metformin medicatio n Not available Not available Not available 10/30/2017 6809 RxNorm May Nair [facility] 8 16:30:26 339 lisinopri l medicatio n Not available Not available Not available 10/30/2017 05907 RxNorm Marlen Arguello [facility] 0 09:30:41 4439 morphine medicatio n vomiting Not available Not available 12/15/2020 7052 RxNorm Marlen Arguello [facility] 1 15:03:22 5164 doxycycli ne Not available rash moderate Not available 08/03/20212020 3640 RxNorm Keron Gan, DO [address] [place], [address], [facility] 1 10:47:48 Medications Name Sig Start Date Stop Date Status Note LastModified by Organization Details LastModified Time prednisone 10 mg tablet PLEASE SEE ATTACHED FOR DETAILED DIRECTION S active Not Available Not Available No t Available doxycycline hyclate 100 mg capsule TAKE [...] Available Not Available torsemide 10 mg tablet TAKE 1 TABLET DAILY BY MOUTH IN THE MORNING FOR 14 DAYS active Not Available Not Available No t Available prochlorper azine maleate 10 mg tablet 11/26 [...] mg capsule TAKE 1 CAPSULE BY MOUTH EVERY 6 HOURS DIRECTED FOR 5 DAYS active Not Available Not Available No [...] Not Available Not Available cephalexin 500 mg tablet Take 1 tablet every 6 hours by oral route as directed for 7 days. 10/25 completed Not Available Not Available Not [...] completed Not Available Not Available Not Available ketoconazol e 2 % topical cream APPLY TO AFFECTED AREA EVERY DAY active Not Available Not Available No t Available morphine 15 mg immediate release tablet [...] Updated DateTime 10/28/2024 177.8 cm 27.4 kg/m2 70540.14 g Hunter Velazco [facility] 10/28/2024 14:06:45 Date Recorded Body height Body mass index (BMI) Body weight Heart rate Oxygen saturation Oxygen saturation in Arterial blood by Pulse oximetry Systolic And Diastolic Provider Name and Address Organization Details Last Updated DateTime 177.8 cm 26 kg/m2 80906.2 2 g 54 /min 98 % 98 % 156/78 mm[Hg] Camila Marcelino [facility] 5 14:23:37 Date Recorded Body height Provider Name an d Address Organization Details Last Updated DateTime 03/10/2025 177.8 cm Camila Marcelino [facility] 03/10/2025 13:55:12 Date Recorded Body height Body mass index (BMI) Body weight Heart rate Systolic And Diastolic Provider Name and Address Organization Details Last Updated DateTime 06/02/2024 177.8 cm 27.4 kg/m2 99799.14 g 54 /min 168/70 mm[Hg] Mable Grier [facility] 06/02/2024 11:25:12 Social History Question Answer Notes LastModified by Organizat ion Details LastModified Time Tobacco Smoking Status Former Smoker Not Available [employer] 06/29/2020 03:36:23 What Was The Date Of Your Most Recent Tobacco Screening? 11/19/2024 [email or web address] Information not available 11/19/2024 Sex: Unknown Functional Status Question Answer Note LastModified by Organization D etails LastModified Time Do you or have you ever used any other forms of tobacco or nicotine? No Information not available 06/28/2022 Mental Status None recorded. Family History Nothing Reported. Medical History No medical history recorded. Immunizations Vaccine Type Date Status Note Provider Nam e and Address Organization Details Recorded Time Tdap 8 completed nAgi wilcox [facility] 02/05/2019 14:00:33 Influenza, split virus, quadrivalent, preservative 1 completed Keron Gan, DO [address] [place], [address], [facility] 06/16/2021 16:53:05 COVID-19, mRNA, LNP-S, PF, 30 mcg/0.3 mL dose 1 completed May wilcox [facility] 06/24/2021 08:21:55 Influenza, split virus, quadrivalent, preservative 0 completed Keron Gan DO [address] [place] [address], [address], [facility] 06/10/2020 20:09:05 Pneumococcal conjugate PCV 13 0 completed Keron Gan DO [address] [place], [address], [facility] 07/20/2020 13:35:49 zoster recombinant 9 completed May wilcox [facility] 10/18/2020 11:57:10 COVID-19, mRNA, LNP-S, PF, 30 mcg/0.3 mL dose 1 completed May wilcox [facility] 01/18/2021 09:08:47 COVID-19, mRNA, LNP-S, PF, 30 mcg/0.3 mL dose 1 completed May wilcox [facility] Internal [facility] 01/18/2021 09:08:52 Past Encounters Encounter ID Performer Location Encounter Start Date Encounter Closed Date Diagnosis/Indication Diagnosis SNOMED-CT Code Diagnosis ICD10 Code Diagnosis Note November CECILLE Martinez [facility] [address] [facility] [place] [address] 11/26/2017 14:31:25 11/26/2017 15:22:32 Essential hypertension 13463823 I10 stable on current regimen Acute infe ctive otitis externa 250454372 H60.391 [id number] Keron Gan [facility] [address] [facility],[place] [address] 01/25/2018 10:23:10 01/25/2018 11:29:15 Type 2 diabetes mellitus 06285237 E11.65 discussion at length about need for getting better with diet has started eating a lt of chopped salads and is doing much better with glucose readings will chk a1c in 3 months Hyperlipidemia 80088821 E78.00 will get this next visit Essential hypertension 59595921 I10 stable and no major issues with meds [id number] Keron Gan [facility] [address] [facility] [address] [facility] [place] [address] 05/06/2018 11:09:34 05/06/2018 12:09:19 Type 2 diabetes mellitus 61895903 E11.65 a1c 7.2 discussion at length about better with diet is much better with glucose readings will chk a1c in 3 months Essential hypertension 74537170 I10 stable and no major issues with meds Hyperlipidemia 36794291 E78.00 will get this next visit Diffuse no n-Hodgkin's lymphoma 529010349 C83.90 having ongoing followup for the lymphoma with q 6 hr lymphoma no major issues [id number] Keron Gan [facility] [address] [facility] [address] [employer] [facility] [place] [address] 08/14/2018 11:45:11 08/14/2018 15:00:14 Type 2 diabetes mellitus 37245492 E11.65 a1c 8.5 discussion at length about better with diet is much better with glucose readings will chk a1c in 3 months but i feel he needs to increase dose of the insulin will recc he increase the Levemir to 28/ Hyperlipidemia 66448010 E78.00 will get this next visit Essential hypertension 82022295 I10 stable and no major issues with meds Osteoarthr itis of shoulder region 00773713 M19.019 cont to have ongoing pain Herpes zoster 0059201 B0 2.9 did take valacyclov ir but had had for several weeks already Depressive disorder 3548 9007 F32.9 recc we try an SSRI [place] e [id number] Keron Gan [facility] [address] [facility] [address] [employer] [facility] [place] [address] 10/28/2018 13:26:33 10/28/2018 14:36:36 Essential hypertension 91571784 I10 stable and no major issues with meds Type 2 mati betes mellitus 58097170 E11.65 a1c 8.5 again still elevated 8.5,7.6, 8.2 discussion at length about better with diet is much better with glucose readings will chk a1c in 3 months but i feel he needs to increase dose of the insulin will recc he increase the Levemir to 30/30 Hepatitis C screening 41 9206536 Z11.59 will get next lab [id number] Keron Gan [facility] [address] [facility] [address] [address] [facility] [place] [address] 02/05/2019 13:53:01 02/05/2019 14:23:10 Diffuse non-Hodgkin's lymphoma 031459019 C83.90 no immunosupp ressants Fever 433637022 R50.9 Tick bite 95071242 W57.X XXA [id number] Keron Gan [facility] [address] [facility] [address] [address] 02/17/2019 10:12:15 02/17/2019 11:06:37 Type 2 diabetes mellitus 93627982 E11.65 a1c 8.5 again still elevated 8.5,7.6, 8.2 discussion at length about better with diet is much better with glucose readings will chk a1c in 3 months but i feel he needs to increase dose of the insulin will recc he increase the Levemir to 30/30 Essential hypertension 38275317 I10 stable and no major issues with meds Hepatitis C screening 41 4609559 Z11.59 will get next lab Diffuse no n-Hodgkin's lymphoma 592513988 C83.90 having ongoing followup for the lymphoma with [facility] sx no major issues [id number] Keron Dorys Gan [facility] [address] [facility] [address] [address] 05/26/2019 10:27:31 05/26/2019 14:59:02 Type 2 diabetes mellitus 27360552 E11.65 a1c 7.3 again still elevated but [...] next a1c is still doing well Hyperlipidemia 41814151 E78.00 will get this next visit Essential hypertension 42001186 I10 stable and no major issues with meds Diffuse no n-Hodgkin's lymphoma 829944820 C83.90 [facility] the [facility] [id number] Keron Gan DO [facility] [address] [facility] [address] [address] 08/18/2019 10:40:28 08/18/2019 11:23:29 Type 2 diabetes mellitus 23944668 E11.65 a1c 7.6 again still elevated but [...] a1c is still doing well Essential hypertension 17557779 I10 stable and no major issues with meds Hyperlipidemia 34596007 E78.00 Well controlled Diffuse no n-Hodgkin's lymphoma 860150710 C83.90 Heme/Onc saw in Nov and no signs of lymphoma [id number] Keron Gan [facility] [address] [facility] [address] 11/17/2019 10:40:58 11/17/2019 11:07:28 Type 2 diabetes mellitus 70215540 E11.65 a1c 7.9 WAS 7.6 again still [...] a1c is still doing well Essential hypertension 98742088 I10 stable and no major issues with meds [id number] Keron Gan [facility] [address] [facility] [address] 02/20/2020 10:57:55 02/20/2020 11:59:25 Type 2 diabetes mellitus 13618933 E11.65 a1c is 6.7 was 7.9 WAS 7.6 againhe is much improved prior was:, 8.5, 8.5,7.6, 8.2, 7.3 discussion at length about better with diet is much better with glucose readings will chk a1c in 3 months but i feel he needs to cont to eat smaller meals more frequently due to early satiety the Levemiris still l Essential hypertension 03558825 I10 stable and no major issues with meds Diffuse no n-Hodgkin's lymphoma 584234777 C83.90 Heme/Onc no signs of lymphoma due for appt later this year [id number] Keron Gan [facility] [address] [facility],[place] [address] 06/30/2020 08:33:59 06/30/2020 11:30:35 Diffuse non-Hodgkin's lymphoma 261245467 C83.90 Heme/Onc no signs of lymphoma last visit but is going back to [place] later this mo for PET scan due for appt later this year Essential hypertension 86344996 I10 stable and no major issues with meds Type 2 mati betes mellitus 46343317 E11.65 a1c is 6.4 now was 6.7 was 7.9 WAS 7.6 againhe is much improved prior was:, 8.5, 8.5,7.6, 8.2, 7.3 discussion at length about better with diet is much better with glucose readings will chk a1c in 3 months cont to eat smaller meals more frequently due to [place] [id number] Keron Gan [facility] [address] [facility],[place] [address] 07/19/2020 11:53:04 07/19/2020 13:48:04 Essential hypertension 16825382 I10 stable and no major issues with meds Type 2 mati betes mellitus 70634883 E11.65 a1c is still 6.4 and was 6.4 now was 6.7 was 7.9 WAS 7.6 again he is much improved prior was:, 8.5, 8.5,7.6, 8.2, 7.3 discussion at length about better with diet is much better with glucose readings will chk a1c in 3 months cont to eat smaller meals more frequently due to early satiety the Levemiris still l Diffuse no n-Hodgkin's lymphoma 823363762 C83.90 Heme/Onc no signs of lymphoma last visit but is going back to [place] in 6 mo for PET scan due for appt later next year Pruritic rash 77507599 L 28.2 [id number] Keron Gan, [facility] [address] [facility] [address] 09/06/2020 08:36:08 09/06/2020 13:23:06 Pain in right knee 0666787070 39037 M25.561 [id number] Keorn Gan [facility] [address] [facility] [address] 09/14/2020 11:15:13 09/14/2020 12:23:08 Edema of lower extremity 000589192 R60.0 will give him 3 days of diuretic and have him call us on fri with update believe this is from lymphatic damage from t he massive knee swelling he describes will follow instructed on potassium rich foods etc [id number] Keron Gan, [facility] [address] [facility] [address] 10/18/2020 11:26:18 10/18/2020 12:26:26 Type 2 diabetes mellitus 94438219 E11.65 a1c is markedly elevated at 8.0 [...] the Levemiris 30 still l Essential hypertension 94055008 I10 stable and no major issues with meds 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 both knees are affected and are being treated with conserv t x for now Gastroesop hageal reflux disease 980156594 K21.9 stable on omeprazole now [id number] Keron Gan [facility] [address] [facility],[place] [address] 12/31/2020 09:43:26 12/31/2020 13:36:06 Fracture of rib 09795086 S22.31XB will start on pain medication and fu as needed [id number] Keron Gan DO [facility] [address] [facility],[place] [address] 01/19/2021 10:57:42 01/19/2021 12:25:44 Type 2 diabetes mellitus 54697944 E11.65 a1c is now 6.8!!!!!!! ! in aug he was markedly elevated at 8.0 and [...] satiety the Levemiris still l Essential hypertension 55592154 I10 stable and no major issues with meds Closed fra cture of multiple right ribs 3047193128 0681078 S22.41XD slowly getting better will cont the local care Diffuse no n-Hodgkin's lymphoma 970744621 C83.90 Heme/Onc no signs of lymphoma last visit but is going back to [place] in 6 mo for PET scan due for appt later next year with [facility] and otherwise is stable now [id number] Keron Gan DO [facility] [address] [facility],[place] [address] 05/04/2021 09:49:54 05/04/2021 11:12:31 Type 2 diabetes mellitus 91246489 E11.65 a1c is now 6.6 was 6.8!!!!!!! ! 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 will treat with diclofenac 75 bid but prob 2 weeks [id number] Keron Gan [facility] [address] [facility],[place] [address] 08/03/2021 10:09:06 08/03/2021 14:59:50 Type 2 diabetes mellitus [id number] E11.65 all lab is pending and he [...] the Levemiris 30/30 still l Essential hypertension [id number] I10 stable and no major issues with meds awaiting Lyme disease 54863526 A6 9.20 he has completed 28 days of doxycyclin ewe are waiting for the word from the rheumatolo gist [id number] Keron Gan DO [facility] [address] [facility],[place] [address] 11/02/2021 10:09:35 11/02/2021 10:53:45 Type 2 diabetes mellitus 62288708 E11.9 all lab is pending and he has not done the lab prior appt :all lab is pending as he has not done it yet a1c is now 6.6 and prior was still 6.6 was 6.8!! in aug he was markedly elevated at 8.0 and prior he was 6.4 and was 6.4 was 6.7 was 7.9 WAS 7.6has eye exam set updiscussi on at length about better with diet is much better with glucose readings will chk a1c in 3 months cont to eat smaller meals more frequently due to early satiety the Levemiris 30/30 still l Essential hypertension 03914480 I10 stable and no major issues with meds awaiting Diffuse no n-Hodgkin's lymphoma [id number] C83.90 Heme/Onc no signs of lymphoma last visit but is going back to [place] in 6 mo for PET scan due for appt later next year with [facility] [place] and otherwise is stable now [id number] Keron Gan DO [facility] [address] [facility], [place] [address] 02/15/2022 10:22:35 02/15/2022 11:02:54 Type 2 diabetes mellitus 69316582 E11.65 a1c is 7.7 and i warned him the issues of allowing the glucose elevatedpr ior appt :has eye exam set updiscussi on at length about better with diet is much better with glucose readings will chk a1c in 3 months cont to eat smaller meals more frequently due to early satiety the Levemiris 30/30 still l Essential hypertension 29831496 I10 stable and no major issues with meds awaiting Hyperlipidemia 08766515 E78.00 Well controlled [id number] Keron Gan DO [facility] [address] [facility],[place] [address] 05/19/2022 10:13:37 05/19/2022 13:02:32 Type 2 diabetes mellitus 36064293 E11.65 a1c is 8.4 was 7.7 and i warned him the issues of allowing the glucose elevatedpr ior appt :taking levemir 30/30 and is tolerating will stop the glimepirid e and start jardiance 25mg po qday Essential hypertension 26771005 I10 stable and no major issues with meds awaitingst able and not having any issues [id number] Keron Gan DO [facility] [address] [facility],[place] [address] 06/28/2022 14:52:37 06/28/2022 16:17:16 Type 2 diabetes mellitus 76377921 E11.65 a1c is now back down to 7.7 8.4 was 7.7 and i warned him the issues of allowing the glucose elevatedpr ior appt :taking levemir 30/30 and is tolerating will stop the glimepirid e and continue the jardiance 25mg po qday and will try to get it with the insurancea nd relates he was out of insulin for a week Essential hypertension 48521371 I10 stable and no major issues with meds awaitingst able and not having any issues Active or passive immunization 722356187 Z23 patient advised he is due for pneu 23 & shingles [id number] Keron Gan [facility] [address] [facility],[place] [address] 10/31/2022 15:31:17 10/31/2022 16:02:20 Essential hypertension 34936479 I10 stable and no major issues with meds awaitingst able and not having any issues Type 2 mati betes mellitus 36255221 E11.9 a1c is now up to 8.5 [...] with the insurance Diffuse no n-Hodgkin's lymphoma 732121284 C83.90 he was seen in late fall , was told that the lesion in question has not changed and they will just follow [id number] Keron Gan [facility] [address] [facility],[place] [address] 03/05/2023 10:45:46 03/05/2023 11:42:15 Type 2 diabetes mellitus 80651058 E11.9 a1c is nowdown to 7.3 (was [...] get it with the insurance Essential hypertension 49572658 I10 stable and no major issues with meds awaitingst able and not having any issues Advance care planning 71 0682800 Z71.89 utd [id number] Keron Gan DO [facility] [address] [facility] [address],[place] [address] 07/24/2023 15:48:34 07/24/2023 16:33:30 Essential hypertension 72269857 I10 stable and no major issues with meds awaitingst able and not having any issues Type 2 mati betes mellitus 47341304 E11.9 doing well taking full jardiance and doing great will need a1c [id number] Keron Gan DO [facility] [address] [facility] [address],[place] [address] 09/11/2023 09:46:10 09/11/2023 13:42:19 Rash of groin [id number] 1928436 R21 will fu with patient at the end of his course of medication s Diffuse no n-Hodgkin's lymphoma 311091536 C83.90 stable Type 2 mati betes mellitus 05161529 E11.9 stable Candidal intertrigo 2661 84806 B37.2 start dual treatment given rash [id number] Keron Gan DO [facility] [address] [facility] [address],[place] [address] 10/26/2023 10:10:04 10/26/2023 10:57:43 Essential hypertension 87892219 I10 stable and no major issues with meds awaitingst able and not having any issues Hyperlipidemia 88068796 E78.00 Well controlled Type 2 mati betes mellitus 43841030 E11.9 doing well taking full jardiance and doing great will need a1c [id number] DO [facility] [address] [facility],[place] [address] 01/30/2024 10:39:26 01/30/2024 12:04:38 Essential hypertension 80968950 I10 stable and no major issues with meds awaitingst able and not having any issues Hyperlipidemia 53598702 E78.00 Well controlled Type 2 mati betes mellitus 51217374 E11.9 has stopped jardiance on own his a1c is 7 will need a1c in 3 mo and see if this risesnote has a elevated gluc around supper timerelate s that he is sometime s eating too much he has gained a little wgt but is otherwise ok Depression screening 171 788484 Z13.31 neg [id number] Keron Gan [facility] [address] [facility], [place] [address] 06/02/2024 11:07:43 06/02/2024 15:37:05 Type 2 diabetes mellitus 62225311 E11.9 his a1c is 6.[address] down on snackingno te has a elevated gluc around supper time but not muchrelate s that he is sometime s eating too much he has gained a little wgt but is otherwise ok Gastroesop hageal reflux disease 378295077 K21.9 taking omeprazole Essential hypertension 64940460 I10 stable and no major issues with meds awaitingst able and not having any issues [id number] [facility] [address] [facility],[place] [address] 11/19/2024 14:03:38 11/19/2024 15:22:03 Depression screening 334721055 Z13.31 neg Diffuse no n-Hodgkin's lymphoma 151915838 C83.90 he was seen in late fall , was told that the lesion in question has not changed and they will just follow Essential hypertension 96504827 I10 stable and no major issues with meds awaitingst able and not having any issues Hyperlipidemia 85751046 E78.00 Well controlled Type 2 mati betes mellitus 81079482 E11.9 his a1c is 6.[address] down on snackingno te has a elevated gluc around supper time but not muchrelate s that he is sometime s eating too much he has gained a little wgt but is otherwise ok Closed fra cture of right humerus [id number] 5151556 S42.301D will be starting PT soon ortho relates is healing well [id number] Keron Gan [facility] [address] [facility] [address],[place] [address] 09/30/2024 13:29:28 09/30/2024 15:56:08 Pain of left wrist 7652271091 02857 M25.532 Pain in lumbar spine 267 650970 M54.51 Weakness o f right lower limb 5556046546 96086 M62.81 [id number] Keron Gan DO [facility] [address] [facility] [address], [place] [address] 10/28/2024 13:52:25 10/28/2024 16:15:40 Pressure injury 4348816793 L89.90 will set up with at home wound care due to fracture, he can't drive himself Edema of l ower extremity 297260299 R60.0 small dose, keep elevated [id number] Keron Gan [facility] [address] [facility], [place] [address] 03/10/2025 13:50:40 03/10/2025 14:44:39 Allergic contact dermatitis caused by plant material 7421824417 0153358 L23.7 contact with wood/plant , rash started immediatel y Health Concerns Section Related Observation LastModified by Organization Detai ls LastModified Time None Recorded Concern Status LastModified by Organization Details LastModified Time None Recorded Advance Directives Directive None Recorded Payers Insurance Date Sequence Insurance Name Policy Number Policy Cr Covered Member ID Cr Member ID Guarantor Name 02/27/2025 1 [place]: [employer] Jimmy Lehman Jr [id number] Osiel Lehman 03/16/2025 2 [facility] (MEDICARE SUPPLEMENT) Osiel Lehman [id number] Osiel Lehman Notes Date Note Type Note Provider Name and Address Organization Details Recorded Time 06/02/20 24 text/htm l Care Management - DiabetesReported bypatient.Self [...] careful with dietvision follows eye dr Keron Gan DO [address] [place], [address], [facility] 06/02/2024 11:45:25 09/30/19 25 text/htm l c/o fall, right humerus fx The patient is participating in this appointment via telemedicine communication with a phone call/video calling service ([employer])The patient consents to use of these platforms [...] what they didn't check DORYS SWENSON [address] [place], [address], [facility] 09/30/2024 15:44:23 10/29/19 25 text/htm l c/o pressure ulcer the patient [...] small dose of diuretic DORYS SWENSON [address] [place], [address], [facility] 10/28/2024 14:38:59 11/20/19 25 text/htm l Care Management - DiabetesReported bypatient.Self [...] feet; no calluses on feetCare Management - HyperlipidemiaReported bypatient.Control:usually well controlled; improving; at goal Complications:no coronary artery disease; no heart attack; no cardiovascular disease; no pancreatitis; no strokeCare Management - HypertensionReported bypatient.Self Care:not under emotional stress Severity:symptoms are improving; does not interfere with daily activities Associated Symptoms:no dizziness; no lightheadedness; no chest pain; no shortness of breath; no palpitations; no edema; no calf muscle cramps; no blurred vision; no confusion; no headaches; no fatigue here for rechk and is doing ok after the right arm surgrelates that he is having quite a few readings in the 40's in the morning Keron Gan DO [address] [place], [address], [facility] 11/19/2024 14:44:52 03/10/20 25 text/htm l c/o rash on hands and legs the patient was unloading wood he just ordered, developed pretty immediate reaction on his hands, itchy with rash, started developing vesicular rash during the night into today, started to progress to his legs and a new patch on his back that he didn't have the patient reports that he is otherwise doing wellno fever, chills the patient will need to be started pred taper and kelflexallergic to doxycycline avoiding high dose of prednisone given diabetes, may need to slightly bump up his units to compensateotherwise doing wellarm is healing well ODRYS SWENSON [address] [facility], [place], [address], [facility] 03/10/2025 14:16:49
[2025-03-17 13:08] LABS: MANUAL DIFF FLAG NO
[2025-03-17 13:49] LABS: Hematocrit 33.2 % (42.0-52.0); Hemoglobin 11.0 g/dl (14.0-18.0); Imm Gran Abs Auto 0.10 X10*3/uL (0.00-0.03); Imm Gran Pct Auto 1.2 % (0.0-0.4); Lymphocytes Absolute Auto 0.6 X10*3/uL (1.2-4.9); Mean Corpuscular HGB Conc 33.1 g/dl (31.0-36.0); Mean Corpuscular Hemoglobin 31.9 pg (27.0-33.0); Mean Corpuscular Volume 96.2 fL (80.0-98.0); NRBC Abs Auto 0.000 X10*3/uL (0.0-0.012); NRBC Pct Auto 0.0 /100WBC (0.0-0.2); Platelet Count 262 X10*3/uL (160-400); Red Blood Count 3.45 X10*6/uL (4.60-5.80); White Blood Count 8.7 X10*3/uL (4.8-10.8)
[2025-03-17 13:54] LABS: Hemoglobin A1C 161.8543 umol/L; Total Hemoglobin (HGBA1C) 2910.8845 umol/L
[2025-03-17 14:29] LABS: Alanine Aminotransferase 28 U/L (0-40); Albumin Level 3.9 g/dL (3.5-5.0); Alkaline Phosphatase 72 U/L (39-117); Anion Gap 11 (12-20); Aspartate Amino Transferase 28 U/L (5-37); Blood Urea Nitrogen 37 mg/dL (9-16); Calcium 8.7 mg/dL (8.4-10.2); Carbon Dioxide 23 mmol/L (22-29); Chloride 109 mmol/L (96-108); Cholesterol 170 mg/dL (<200); Estimated Glomerular Filt Rate 58; HDL Cholesterol 30 mg/dL (>40); Potassium 4.5 mmol/L (3.3-5.1); Sodium 138 mmol/L (135-145); Total Protein 6.6 g/dL (6.5-8.0); Triglycerides 144 mg/dL (<150)
[2025-03-17 14:46] LABS: Prostate Specific Antigen < 0.10 ng/mL (<0.05-4.0)
[2025-03-17 14:46] LABS: Microalbum/Creatinine Ratio Ur 1708.5 ug/mg cr (<30)
== END 2025-03-17 10:46 | disposition home or self-care (01) ==
LOC: HO.MANLDS 10:45
PROVIDERS: Visit Provider Internal Medicine
DX: Z12.5 Encounter for screening for malignant neoplasm of prostate (principal); I10 Essential (primary) hypertension; E11.9 Type 2 diabetes mellitus without complications; E78.00 Pure hypercholesterolemia, unspecified
CPT/HCPCS: 36415; 80053; 80061; 82043; 82570; 83036; 84153; 85025

== ENCOUNTER 2025-06-10 08:07 | Outpatient (REF) | payer MEDICARE, OTHER, SELFPAY ==
[2025-06-10 13:05] LABS: MANUAL DIFF FLAG NO
[2025-06-10 13:10] LABS: Hematocrit 35.7 % (42.0-52.0); Hemoglobin 11.2 g/dl (14.0-18.0); Imm Gran Abs Auto 0.02 X10*3/uL (0.00-0.03); Imm Gran Pct Auto 0.4 % (0.0-0.4); Lymphocytes Absolute Auto 0.8 X10*3/uL (1.2-4.9); Mean Corpuscular HGB Conc 31.4 g/dl (31.0-36.0); Mean Corpuscular Hemoglobin 31.6 pg (27.0-33.0); Mean Corpuscular Volume 100.8 fL (80.0-98.0); NRBC Abs Auto 0.040 X10*3/uL (0.0-0.012); NRBC Pct Auto 0.9 /100WBC (0.0-0.2); Platelet Count 216 X10*3/uL (160-400); Red Blood Count 3.54 X10*6/uL (4.60-5.80); White Blood Count 4.5 X10*3/uL (4.8-10.8)
[2025-06-10 13:37] LABS: Hemoglobin A1C 144.1651 umol/L; Total Hemoglobin (HGBA1C) 2918.3506 umol/L
[2025-06-10 14:30] LABS: Alanine Aminotransferase 17 U/L (0-40); Albumin Level 4.0 g/dL (3.5-5.0); Alkaline Phosphatase 72 U/L (39-117); Anion Gap 9 (12-20); Aspartate Amino Transferase 20 U/L (5-37); Blood Urea Nitrogen 22 mg/dL (9-16); Calcium 9.4 mg/dL (8.4-10.2); Carbon Dioxide 29 mmol/L (22-29); Chloride 111 mmol/L (96-108); Cholesterol 202 mg/dL (<200); Estimated Glomerular Filt Rate 54; HDL Cholesterol 27 mg/dL (>40); Potassium 4.8 mmol/L (3.3-5.1); Sodium 144 mmol/L (135-145); Thyroid Stimulating Hormone 3.67 uIU/mL (0.32-4.0); Total Protein 6.5 g/dL (6.5-8.0); Triglycerides 143 mg/dL (<150)
== END 2025-06-10 08:08 | disposition home or self-care (01) ==
LOC: HO.MANLDS 08:07
PROVIDERS: Visit Provider Internal Medicine
DX: R79.89 Other specified abnormal findings of blood chemistry (principal)
CPT/HCPCS: 36415; 80053; 80061; 83036; 84443; 85025